=== PATIENT | female | born 1940 | race Caucasian/White ===

== ENCOUNTER → 2020-12-14 10:16 | Outpatient (BNVA) | payer MEDICARE, SELFPAY | PROVIDERS: Family Provider Family Medicine; PCP Family Medicine; Visit Provider Family Medicine | DX: R30.0 Dysuria (principal) | CPT/HCPCS: 81000; 87086 ==

== ENCOUNTER → 2020-12-31 15:12 | Outpatient (BNVA) | payer MEDICARE, SELFPAY | PROVIDERS: Family Provider Family Medicine; PCP Family Medicine; Visit Provider Nurse Practitioner Family | DX: R30.0 Dysuria (principal); R17 Unspecified jaundice; Z01.818 Encounter for other preprocedural examination | CPT/HCPCS: 80053; 81000; 85025; 87635 ==

== ENCOUNTER → 2022-08-12 13:20 | Outpatient (BNVA) | payer MEDICARE, SELFPAY | PROVIDERS: Family Provider Family Medicine; PCP Family Medicine; Visit Provider Nurse Practitioner Family | DX: R50.9 Fever, unspecified (principal); R05.9 Cough, unspecified; J32.9 Chronic sinusitis, unspecified | CPT/HCPCS: 87426 ==

== ENCOUNTER 2022-09-03 20:26 | Emergency (ER) | payer MEDICARE, SELFPAY ==
[2022-09-03] VITALS (9 sets, daily range): BP systolic 101–143; BP diastolic 59–86; PULSE 77–92; RESP 16–26; TEMP 36.4; O2SAT 88–100; BMI 23.1
--- NOTE | 2022-09-03 20:30 | XRR_ITS ---
PROCEDURE INFORMATION: Exam: XR Chest Exam date and time: 09/03/2022 9:20 PM Age: 81 years old Clinical indication: Cough and fever; Additional info: SOB TECHNIQUE: Imaging protocol: Radiologic exam of the chest. Views: 1 view. COMPARISON: CR XR chest 1V [id number] 11/18/2019 3:43 PM FINDINGS: Lungs: Interval mild patchy opacities in the right lower lobe which may represent inflammation or infection. Redemonstration of hyperinflation, interstitial fibrosis, calcified granulomas, and left basilar scarring. No consolidation. Pleural spaces: Unremarkable. No large pleural effusion. No pneumothorax. Heart/Mediastinum: Unremarkable. No cardiomegaly. Bones/joints: There are degenerative changes of the spine. XR/XR chest 1V portable [id number] IMPRESSION: 1. Interval development of mild patchy opacities in the right lower lobe which may represent inflammation or infection. 2. Otherwise, no significant change with underlying fibrosis and COPD.
--- NOTE | 2022-09-03 20:30 | ECG_ITS ---
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 Measurements Intervals [place] Rate: 79 P: 57 NV: 139 QRS: -40 QRSD: 86 T: 68 QT: 364 QTc: 418 Interpretive Statements SINUS RHYTHM WITH OCCASIONAL VENTRICULAR PREMATURE COMPLEXES POSSIBLE LEFT ATRIAL ENLARGEMENT [-0.1mV P-WAVE IN V1/V2] INFERIOR MYOCARDIAL INFARCTION , OF INDETERMINATE AGE Compared to ECG 11/18/2019 17:43:24 Ventricular premature complex(es) now present Sinus arrhythmia no longer present Left anterior fascicular block no longer present Myocardial infarct finding still present Electronically Signed On 09-04-2022 12:52:33 CDT by Monica Ruiz M.D. [id number]
[2022-09-03 21:55] LABS: Basophils % 0.2 %; Hematocrit 48.9 % (37.0-47.0); Hemoglobin 16.2 g/dL (11.5-15.3); Lymphocytes # 0.8 10^3/uL (0.8-4.8); Lymphocytes % 8.1 %; Mean Corpuscular HGB Conc 33.1 g/dL (30.0-36.0); Mean Corpuscular Hemoglobin 30.6 pg (28.0-34.0); Mean Corpuscular Volume 92.3 fl (81-99); Monocytes # 1.1 10^3/uL (0.2-0.9); Monocytes % 11.9 %; Neutrophils # 7.42 10^3/uL (1.8-7.7); Neutrophils % 79.5 %; Nucleated Red Blood Cells % 0 %; Platelet Count 171 10^3/cmm (130-400); White Blood Count 9.3 10^3/uL (4.0-10.0)
--- NOTE | 2022-09-03 21:59 | W.ED.GENADLT ---
HPI - General Adult General: Chief complaint: Shortness of Breath/Dyspnea Stated complaint: sob ,cough Time Seen by Provider: 09/03/22 21:31 History of Present Illness: Patient is an 81-year-old female with a history of COPD on 3 L of oxygen, hypertension who presents the emergency room for concerns of worsening cough. Patient was in contact with somebody with symptoms and cough last week. Patient has has had similar symptoms. Last week, patient was prescribed and antibiotics since despite taking the antibiotic, patient continues to have worsening cough and shortness of breath. Patient reports chills and decreased appetite in the last few days. Patient's daughter became concerned brought patient to the emergency room. On arrival, patient tells me that she still uses 3 L of oxygen. Patient is AAO x3 answering all my questions appropriately. Patient denies any chest pain, abdominal pain, diarrhea, melena/hematochezia. Patient denies any complaints. Onset:1 week ago Duration:1 week Location:home Severity:moderate Associated symptoms: Reports dyspnea; Deny chest pain, nausea, rash, palpitations or vomiting Review of Systems Const: Reports: chills and fatigue; Denies: fever(s) Eyes: Denies: change in vision ENMT: Denies: mouth pain Card: Denies: chest pain or palpitations Resp: Reports: dyspnea and non-productive cough GI: Denies: abdominal pain, nausea, vomiting or diarrhea : Denies: dysuria Musc: Denies: extremity pain Skin/Breast: Denies: rash or new lesions Neuro: Denies: weakness in extremities Psych: Reports: other (Normal mood) Remy/Lymph: Denies: easy bruising [facility] ED PFSH: Medical History (Updated 09/07/22 @ 06:23 by Elaina Escobedo MD) COPD (chronic obstructive pulmonary disease) with emphysema Hypertension Pneumonia Social History Smoking and tobacco status: former smoker Quit status (tobacco): has quit using tobacco Year quit tobacco: 2018 Alcohol intake: never Physical Exam Const: COMMON NORMALS: alert HENMT: COMMON NORMALS: atraumatic HEAD & SCALP: atraumatic MOUTH: moist mucous membranes not abnormal Eye: COMMON NORMALS: EOMs intact bilaterally and conjunctivae normal CONJUNCTIVA: Yes conjunctivae normal Neck/C-Spine: COMMON NORMALS: full ROM and supple Resp: COMMON NORMALS: normal respiratory effort OTHER: + Coarse breath sounds bilaterally Cardio: COMMON NORMALS: regular rate RATE: regular rate GI: COMMON NORMALS: Soft to palpation and non-tender PALPATION: Yes Soft to palpation OTHER: No focal TTP. NO guarding rebound, guarding, rigidity. No CVA tenderness to percussion. Neg Reis/Neg McBurney's point tenderness, no suprabupic tenderness to palpation. Extremity: COMMON NORMALS: full ROM Neuro: SENSORIUM/ORIENTATION: Yes alert MOTOR EXAM: No Abnormal motor strength present and Other motor observations present (no focal motor deficits) Psych: COMMON NORMALS: speech normal SPEECH: Yes normal speech MOOD & AFFECT: Yes euthymic mood Course Vital Signs: Vital signs: Vital Signs Temperature 97.6 F 09/03/22 20:41 Pulse Rate 83 09/03/22 23:47 Respiratory Rate 21 H 09/03/22 23:47 Blood Pressure 104/59 09/03/22 23:47 Pulse Oximetry 93 09/03/22 23:47 Oxygen Delivery Me thod 09/03/22 23:47 Oxygen Flow Rate 4 09/03/22 23:47 MDM - General Adult Medical Decision Making 81-year-old female with a history of COPD chronically on 3 L of oxygen, hypertension presenting to emergency room with dyspnea cough for the last week despite taking antibiotics. Patient does not remember what antibiotic she was on. Patient has noted have coarse breath sounds bilaterally. Patient satting at greater 95% on 3L. She has no signs of respiratory distress. Lab work-up showed white count 9.3. CRP is noted to be elevated over 100. Patient has sodium 131. X-ray chest showed right lower lobe opacity concerning for early pneumonia. At the present time, I performed a shared decision-making with patient and recommended admit admission given age and comorbidities. However patient's daughter reassures me that she will take care of her at home and give her medicine in the next few days. Patient received IV ceftriaxone and PO azithromycin in the ER. We will discharge patient with third-generation cephalosporin and azithromycin for pneumonia. Because patient chooses to go home, explained the risk of leaving the hospital today which includes worsening respiratory symptoms and sudden decompensation. Family verbalized understanding. I have given family strict return precaution for any signs of worsening dyspnea or cough, altered mental status, or any new or concerning complaints. Troponin x 2 with delta < 5. EKG is non-ischemic. Do not suspect ACS today. Rx cefdinir and azithromycin for PNA Disposition: Discharge. Patient counseled regarding diagnostic impression, treatment plan. Patient given ED strict return precautions to return for continuation, worsening, or development of new symptoms. Instructed to f/u w/ PCP regarding symptoms today. Patient verbalized understanding. Lab Data : 09/03/22 21:47 09/03/22 21:47 Radiology Impressions Chest X-Ray 09/03/22 20:30 IMPRESSION: 1. Interval development of mild patchy opacities in the right lower lobe which may represent inflammation or infection. 2. Otherwise, no significant change with underlying fibrosis and COPD. Laboratory Results WBC 9.3 10^3/uL (4.0-10.0) 09/03/22 21:47 RBC 5.30 10^6/uL (4.1-5.3) 09/03/22 21:47 Hgb 16.2 g/dL (11.5-15.3) H 09/03/22 21:47 Hct 48.9 % (37.0-47.0) H 09/03/22 21:47 MCV 92.3 fl (81-99) 09/03/22 21:47 MCH 30.6 pg (28.0-34.0) 09/03/22 21:47 MCHC 33.1 g/dL (30.0-36.0) 09/03/22 21:47 RDW 13.0 % (12.1-15.1) 09/03/22 21:47 Plt Count 171 10^3/cmm (130-400) 09/03/22 21:47 MPV 12.0 fL (7.4-10.4) H 09/03/22 21:47 Neut % (Auto) 79.5 % 09/03/22 21:47 Lymph % (Auto) 8.1 % 09/03/22 21:47 Reynolds % (Auto) 11.9 % 09/03/22 21:47 Eos % (Auto) 0.0 % 09/03/22 21:47 Baso % (Auto) 0.2 % 09/03/22 21:47 Neut # (Auto) 7.42 10^3/uL (1.8-7.7) 10/05/22 21:47 Lymph # (Auto) 0.8 10^3/uL (0.8-4.8) 09/03/22 21:47 Reynolds # (Auto) 1.1 10^3/uL (0.2-0.9) H 09/03/22 21:47 Eos # (Auto) 0.0 10^3/uL (0.0-0.8) 09/03/22 21:47 Baso # (Auto) 0.0 10^3/uL (0.0-0.1) 09/03/22 21:47 Nucleated RBC % (auto) 0 % 09/03/22 21:47 Nucleated RBCs # 0.0 /100WBC 09/03/22 21:47 Sodium 131 mmol/L (136-145) L 09/03/22 21:47 Potassium 4.3 mmol/L (3.5-5.1) 09/03/22 21:47 Chloride 89 mmol/L (98-107) L 09/03/22 21:47 Carbon Dioxide 29 mmol/L (22-29) 09/03/22 21:47 Anion Gap 17.3 (5-19) 09/03/22 21:47 BUN 31 mg/dL (8-23) H 09/03/22 21:47 Creatinine 1.0 mg/dL (0.5-0.9) H 09/03/22 21:47 GFR Calculation Not Reportable 09/03/22 21:47 Glucose 117 mg/dL (65-115) H 09/03/22 21:47 Calculated Osmolality 280 mOsm/kg (285-295) L 09/03/22 21:47 Calcium 9.4 mg/dL (8.5-10.5) 09/03/22 21:47 Troponin T Baseline 32 ng/L (0-10) H 09/03/22 21:47 Troponin T 120 Minute 30.27 ng/L (0-10) H 09/03/22 Unknown Delta Troponin T -1.73 ABS# (0-10) L 09/03/22 Unknown C-Reactive Protein 108.5 mg/L (0.0-4.9) H 09/03/22 21:47 Procalcitonin 0.11 ng/mL (0-0.5) 09/03/22 21:47 Imaging Data Other Imaging: Radiologist's impression: [facility] [address] [address] XRay Report Signed Patient: Ramya Medel Unit #: [id number] : 1940 Age/Sex: 81 / F ADM Date: 09/03/22 Loc: ER Room/Bed: Attending Dr: Ordering Provider/Ordering MD: Annalise Kang MD Date of Service: 09/03/22 Procedure(s): XR chest 1V portable [id number] Accession Number(s): [id number] Report Number: [id number] PROCEDURE INFORMATION: Exam: XR Chest Exam date and time: 09/03/2022 9:20 PM Age: 81 years old Clinical indication: Cough and fever; Additional info: SOB TECHNIQUE: Imaging protocol: Radiologic exam of the chest. Views: 1 view. COMPARISON: CR XR chest 1V [id number] 11/18/2019 3:43 PM FINDINGS: Lungs: Interval mild patchy opacities in the right lower lobe which may represent inflammation or infection. Redemonstration of hyperinflation, interstitial fibrosis, calcified granulomas, and left basilar scarring. No consolidation. Pleural spaces: Unremarkable. No large pleural effusion. No pneumothorax. Heart/Mediastinum: Unremarkable. No cardiomegaly. Bones/joints:? There are degenerative changes of the spine. XR/XR chest 1V portable [id number] IMPRESSION: 1. Interval development of mild patchy opacities in the right lower lobe which may represent inflammation or infection. 2. Otherwise, no significant change with underlying fibrosis and COPD. ? Dictated By: Martina Christian MD Signed By: Martina Christian MD Signed Date/Time: 09/03/222203 DD/ 19 Discharge Plan Discharge Patient Disposition: Home Clinical Impression: Dyspnea, Pneumonia, Cough Condition: Stable Prescriptions: New acetaminophen 500 mg tablet 500 mg PO Q6H PRN (Reason: pain) 5 Days Qty: 20 0RF cefdinir 300 mg capsule 300 mg PO BID 10 Days Qty: 20 0RF azithromycin [Zithromax TRI-LESLIE] 500 mg tablet See Rx Instructions .ROUTE .COMPLEX Qty: 3 0RF Rx Instructions: For 250 mg dose pack: take 500 mg today (day 1), then 250 mg for 4 days (days 2-5) No Action cyanocobalamin (vitamin B-12) [Vitamin B-12] 1,000 mcg tablet extended release 1,000 mcg PO DAILY cholecalciferol (vitamin D3) 125 mcg (5,000 unit) capsule 125 mcg PO DAILY (DME) portable oxygen concentrator. See Rx Instructions .Route .MEDSUPPLY Qty: 1 0RF Rx Instructions: As directed 2 L via NC 24 hours a day Adult Probiotic 3 billion cell capsule 3,000 mmu cells PO QDAY aspirin [Adult Low Dose Aspirin] 81 mg tablet,delayed release (DR/EC) 81 mg PO DAILY Lumigan 0.01 % drops 1 drop ophthalmic (eye) DAILY albuterol sulfate 2.5 mg /3 mL (0.083 %) solution for nebulization 2.5 mg INHALATION Q4H PRN (Reason: shortness of breath or wheezing) Qty: 75 3RF (DME) oxygen home fill system See Rx Instructions .Route .MEDSUPPLY Qty: 1 0RF Rx Instructions: O2 2 L via NC 24 hours a day lisinopril 10 mg tablet 10 mg PO DAILY Discharge Orders: Discharge ED (Routine); Ordered 09/03/22 Ordered By: Jose Sheffield Referrals: Dominguez Capps DO [Primary Care Provider] - Discharge Diet: Advance as tolerated Discharge Activity: Increase activity as tolerated Patient Instructions: Bacterial Pneumonia (ED) Activity Restrictions/Additional Instructions: Come back to the emergency room if your symptoms worsen, have any shortness of breath, change in behavior fever/chills, dehydration, inability tolerate food or drinks, any difficulty breathing, or any new or concerning complaints. Please return the emergency room if your pulse ox reads less than 88% on 3L of oxygen. Coding Level of Care Code ED Regulated Program Manager for Kyler Fwadin Exam Comprehensive
[2022-09-03] MEDS: ipratropium-albuterol 3 mL Neb INHALATION ×3 (22:02→22:03)
[2022-09-03 22:21] LABS: Troponin(5th) Baseline 32 ng/L (0-10)
[2022-09-03 22:22] LABS: Blood Urea Nitrogen 31 mg/dL (8-23); C Reactive Protein 108.5 mg/L (0.0-4.9); Calcium 9.4 mg/dL (8.5-10.5); Carbon Dioxide 29 mmol/L (22-29); Chloride 89 mmol/L (98-107); Glucose 117 mg/dL (65-115); Osmolality Calculated 280 mOsm/kg (285-295); Sodium 131 mmol/L (136-145)
[2022-09-03 22:27] LABS: Anion Gap 17.3 (5-19); Potassium 4.3 mmol/L (3.5-5.1)
[2022-09-03 22:29] LABS: Procalcitonin 0.11 ng/mL (0-0.5)
[2022-09-03] MEDS: cefTRIAXone 1,000 MG in sodium chloride 0.9% (plus) 50 ML 100 MG IV (22:51)
[2022-09-03] MEDS: azithromycin 250 mg Tablet 500 MG PO (22:52)
[2022-09-03 23:38] LABS: Troponin 5 2HR 30.27 ng/L (0-10)
[2022-09-03 23:45] LABS: Troponin 5 2HR Delta -1.73 ABS# (0-10)
== END 2022-09-04 00:02 | disposition home or self-care (01) ==
PROVIDERS: Emergency Provider Emergency Medicine; PCP Family Medicine
DX: J18.9 Pneumonia, unspecified organism (principal); J44.9 Chronic obstructive pulmonary disease, unspecified; Z99.81 Dependence on supplemental oxygen; I10 Essential (primary) hypertension; Z87.891 Personal history of nicotine dependence
CPT/HCPCS: 71045; 80048; 84145; 84484; 85025; 86140; 93005; 94640; 96365; 99285; J0696; Q0144

== ENCOUNTER 2022-09-06 20:58 | Inpatient (IN) | payer MEDICARE, SELFPAY ==
[2022-09-06] VITALS (8 sets, daily range): BP systolic 126–149; BP diastolic 57–86; PULSE 75–87; RESP 20–30; TEMP 36.4; O2SAT 92–96; BMI 22.6
--- NOTE | 2022-09-06 21:35 | PC.NURSE ---
assumed care of patient at 2129, RT notified of patient and pending orders at 2133.
--- NOTE | 2022-09-06 21:45 | XRR_ITS ---
PROCEDURE INFORMATION: Exam: XR Chest Exam date and time: 09/06/2022 9:53 PM Age: 81 years old Clinical indication: Shortness of breath; Additional info: SOB TECHNIQUE: Imaging protocol: Radiologic exam of the chest. Views: 1 view. COMPARISON: CR (CHEST, ) 09/03/2022 9:20 PM FINDINGS: Lungs: Changes of emphysema. Stable atelectasis or scarring in the lung bases. Mild scarring in the lung apices. Pleural spaces: Mild apical pleural scarring. No pneumothorax. No pleural effusion. Heart/Mediastinum: Unremarkable. No cardiomegaly. Bones/joints: Thoracolumbar scoliosis. XR/XR chest 1V portable [id number] IMPRESSION: 1. Stable chest. No definite evidence for active pneumonia.
[2022-09-06] MEDS: ipratropium-albuterol 3 mL Neb INHALATION (21:50)
--- NOTE | 2022-09-06 21:50 | PC.NURSE ---
patient unable to urinate, family states they are unsure of last time of void. Bladder scan results 167ml urine in bladder, dr bradley notified of findings.
[2022-09-06 21:57] LABS: Basophils % 0.5 %; Eosinophils % 0.5 %; Hematocrit 49.2 % (37.0-47.0); Hemoglobin 16.2 g/dL (11.5-15.3); Lymphocytes % 25.8 %; Mean Corpuscular HGB Conc 32.9 g/dL (30.0-36.0); Mean Corpuscular Hemoglobin 30.3 pg (28.0-34.0); Mean Platelet Volume 11.1 fL (7.4-10.4); Monocytes % 28.3 %; Neutrophils # 1.63 10^3/uL (1.8-7.7); Neutrophils % 44.4 %; Nucleated Red Blood Cells % 0 %; Platelet Count 248 10^3/cmm (130-400); Red Blood Count 5.35 10^6/uL (4.1-5.3); Red Cell Distribution Width 12.6 % (12.1-15.1); White Blood Count 3.7 10^3/uL (4.0-10.0)
--- NOTE | 2022-09-06 22:00 | PC.NURSE ---
respiratory at bedside for ABGs and updraft
[2022-09-06 22:07] LABS: D Dimer 1.29 ug/mIFEU (0-0.59)
[2022-09-06 22:21] LABS: Alanine Aminotransferase 17 U/L (0-33); Albumin Level 3.6 g/dL (3.5-5.2); Alkaline Phosphatase 87 U/L (35-105); Aspartate Amino Transferase 24 U/L (0-32); Blood Urea Nitrogen 18 mg/dL (8-23); Calcium 9.3 mg/dL (8.5-10.5); Carbon Dioxide 34 mmol/L (22-29); Chloride 92 mmol/L (98-107); Globulin 3.5 g/dL (1.3-4.6); Glucose 88 mg/dL (65-115); Magnesium 1.9 mg/dL (1.7-2.3); NT Pro B Type Natriuretic Pept 437 pg/mL (0-450); Osmolality Calculated 281 mOsm/kg (285-295); Sodium 135 mmol/L (136-145); Total Bilirubin 0.6 mg/dL (0.15-1.2); Total Protein 7.1 g/dL (6.6-8.7)
[2022-09-06 22:32] LABS: ABG PCO2 44.3 mmHg (35-45); ABG PH Result 7.46 (7.35-7.45); Arterial Blood Gas Hematocrit 48.9 % (37-47); Base Excess ABG 6.7 mmol/L (-2.0-2.0); Blood Gas Allen Test Pos; Blood Gas LPM 3.5 %; Blood Gas Sample Site Radial, left; Blood Gas Sample Type Arterial; Carboxyhemoglobin 0.9 %THgb (0.4-20.1); HCO3 ABG 31.5 mmol/L (22-26); HGB O2 Sat 92.2 % (95-100); Methemoglobin 0.6 % (0.4-1.5); Oxygen Device NC; PO2 ABG 62.4 mmHg (80.0-100.0); Total Hemoglobin 15.9 g/dL (12-16)
[2022-09-06] MEDS: sodium chloride 0.9% 1,000 ML 999 ML IV (22:37)
[2022-09-06 23:00] LABS: SARS Covid-2 Antigen positive (Negative)
[2022-09-06] MEDS: ondansetron 2 mg/ML SDV 2 mL 4 MG IVP (23:19)
--- NOTE | 2022-09-06 23:36 | PC.NURSE ---
family and patient refusing fentanyl, upset that it was ordered, stating she takes tramadol for her chronic pain and requesting this. patient states she would also rather take tramadol. dr bradley notified of this, awaiting orders. family also states that they believe she has an iodine allergy, refuse CTA, state they feel she had trouble breathing and bp decrease after injection previously at [facility] and just remembered. dr bradley notified.
--- NOTE | 2022-09-06 23:53 | PC.NURSE ---
entered room to administer tramadol as requesting for hip pain, family states i think she is gonna actually wait on pain meds we got that stuff [monitoring equipment] off and have a pillow under her hip and she's able to sleep. monitoring equipment placed back on patient, patient awakened with movement. family states well go ahead and ask her then . patient states yeah im just gonna wait i changed my mind im gonna lay like this . dr bradley notified, charge nurse dwayne notified, danny with pharmacy notified, mold making plastics sheets supervisor denny rodríguez notified due to several pulls and returns, discrepancies, and wastes of medications in pyxis to explain chain of events and transactions involving pyxis, MAR, and situation.
[2022-09-07] VITALS (13 sets, daily range): BP systolic 100–196; BP diastolic 43–115; PULSE 74–116; RESP 18–24; TEMP 36.6–36.8; O2SAT 93–98
--- NOTE | 2022-09-07 01:12 | PC.NURSE ---
report called to Shahida CONTRERAS, patient accepted to rm [id number] at this time.
--- NOTE | 2022-09-07 01:15 | W.ED.SOB ---
HPI - SOB/Dyspnea General: Chief Complaint: Shortness of Breath/Dyspnea Stated Complaint: Has Phenumonia Time Seen by Provider: 09/06/22 21:24 Source: patient and family History of Present Illness: HPI Narrative: 81-year-old female with a history of COPD. She is unvaccinated for COVID-19. She was evaluated 2 days ago and found to have a right lower lobe pneumonia. She was sent home on azithromycin and cefdinir, evidently after discussing being admitted. She was under strict instructions to return if she did not improve. Yesterday she seemed to do a bit better. Today she seemed worse again. She is lethargic. Dependent on oxygen all the time, which is new for her. She continues to have a cough with some clear sputum production and trouble breathing. MD elicited complaint: shortness of breath and cough Pertinent past history: COPD Onset (ago): day(s) Context: recent illness Timing: constant and progressively worsening Severity: moderate Exacerbating factors: lying flat and exertion Relieving factors: oxygen Known history of: COPD Associated symptoms: Reports chest congestion, cough and nausea; Deny abdominal pain, chest pain, dizziness, fever(s) or vomiting Treatment prior to arrival: oxygen and other (abx) Related Data: Home oxygen amount: other (2L intermittently) Review of Systems Const: Denies: fever(s) Card: Denies: chest pain Resp: Reports: dyspnea, productive cough and chest congestion GI: Reports: nausea; Denies: abdominal pain or vomiting Musc: Reports: back pain (upper back) Neuro: Denies: dizziness [facility] ED PFSH: Medical History (Updated 09/07/22 @ 06:23 by Elaina Escobedo MD) COPD (chronic obstructive pulmonary disease) with emphysema Hypertension Pneumonia Social History Smoking and tobacco status: former smoker Quit status (tobacco): has quit using tobacco Year quit tobacco: 2018 Alcohol intake: never Physical Exam Const: GENERAL APPEARANCE: cooperative, ill appearing and frail appearing HENMT: COMMON NORMALS: normocephalic, atraumatic and Normal external nose present HEAD & SCALP: normocephalic and atraumatic FACE & SINUS: normal facial exam and face symmetric NOSE: Normal external nose present Eye: COMMON NORMALS: Equal, round and reactive pupils present and EOMs intact bilaterally PUPIL: Yes Equal, round and reactive pupils present Neck/C-Spine: GENERAL: Yes trachea midline Chest: CHEST: Yes Symmetrical chest wall rise Resp: EFFORT & INSPECTION: Yes tachypneic and Yes uses accessory muscles AUSCULTATION: rhonchi and wheezes Cardio: COMMON NORMALS: regular rate and regular rhythm RATE: regular rate RHYTHM: regular rhythm GI: COMMON NORMALS: Normal to inspection, nondistended, normoactive bowel sounds present Extremity: COMMON NORMALS: no pedal edema Neuro: PAMELA COMA SCALE: document GCS findings [place] coma scale eye opening: Spontaneous Pamela coma scale verbal response: Orientated Pamela coma scale motor response: Obey commands [place] coma scale total score: 15 SENSORY EXAM: Yes extremities (intact) Psych: COMMON NORMALS: speech normal SPEECH: Yes normal speech Course Vital Signs: Vital signs: Vital Signs Temperature 98.2 F 09/07/22 15:56 Pulse Rate 96 09/07/22 15:56 Respiratory Rate 21 H 09/07/22 15:56 Blood Pressure 118/74 09/07/22 15:56 Pulse Oximetry 94 09/07/22 15:56 Oxygen Delivery Me thod 09/07/22 14:41 Oxygen Flow Rate 3 09/07/22 14:41 MDM - SOB/Dyspnea Medical Decision Making Mildly decreased white blood cell count of 3.7. Hemoglobin is 16. BUN and creatinine are normal. Sodium is 135. D-dimer is 1.29. She is COVID-19 positive by rapid testing. She is hypoxic requiring 4 L here to reach a sat of 94%. Her respiratory distress is improved with this. Nebulizer treatment may have helped some. She has been given Solu-Medrol. She is given levofloxacin after blood cultures. With increased hypoxia, COVID-pneumonia, she will be admitted. Family declined CTA due to history of possible anaphylactic reaction contrast. Lab Data : 09/06/22 21:52 09/07/22 05:14 Labs/Radiology: Radiology Impressions Chest X-Ray 09/06/22 21:45 IMPRESSION: 1. Stable chest. No definite evidence for active pneumonia. Venous Duplex 09/07/22 02:42 IMPRESSION: No evidence of deep vein thrombosis. Laboratory Results WBC 3.7 10^3/uL (4.0-10.0) L 09/06/22 21:52 RBC 5.35 10^6/uL (4.1-5.3) H 09/06/22 21:52 Hgb 16.2 g/dL (11.5-15.3) H 09/06/22 21:52 Hct 49.2 % (37.0-47.0) H 09/06/22 21:52 MCV 92.0 fl (81-99) 09/06/22 21:52 MCH 30.3 pg (28.0-34.0) 09/06/22 21:52 MCHC 32.9 g/dL (30.0-36.0) 09/06/22 21:52 RDW 12.6 % (12.1-15.1) 09/06/22 21:52 Plt Count 248 10^3/cmm (130-400) 09/06/22 21:52 MPV 11.1 fL (7.4-10.4) H 09/06/22 21:52 Neut % (Auto) 44.4 % 09/06/22 21:52 Lymph % (Auto) 25.8 % 09/06/22 21:52 [place] % (Auto) 28.3 % 09/06/22 21:52 Eos % (Auto) 0.5 % 09/06/22 21:52 Baso % (Auto) 0.5 % 09/06/22 21:52 Neut # (Auto) 1.63 10^3/uL (1.8-7.7) L 09/06/22 21:52 Lymph # (Auto) 1.0 10^3/uL (0.8-4.8) 09/06/22 21:52 [place] # (Auto) 1.0 10^3/uL (0.2-0.9) H 09/06/22 21:52 Eos # (Auto) 0.0 10^3/uL (0.0-0.8) 09/06/22 21:52 Baso # (Auto) 0.0 10^3/uL (0.0-0.1) 09/06/22 21:52 Nucleated RBC % (auto) 0 % 09/06/22 21:52 Nucleated RBCs # 0.0 /100WBC 09/06/22 21:52 D-Dimer 1.29 ug/mIFEU (0-0.59) H 09/06/22 21:52 Specimen Type Arterial 09/06/22 21:45 Sample Site Radial, left 09/06/22 21:45 ABG pH 7.46 (7.35-7.45) H 09/06/22 21:45 ABG pCO2 44.3 mmHg (35-45) 09/06/22 21:45 ABG pO2 62.4 mmHg (80.0-100.0) L 09/06/22 21:45 ABG HCO3 31.5 mmol/L (22-26) H 09/06/22 21:45 ABG Base Excess 6.7 mmol/L (-2.0-2.0) H 09/06/22 21:45 Daryn Test Pos 09/06/22 21:45 Hematocrit 48.9 % (37-47) H 09/06/22 21:45 Hgb O2 Saturation 92.2 % (95-100) L 09/06/22 21:45 Carboxyhemoglobin 0.9 %THgb (0.4-20.1) 09/06/22 21:45 Methemoglobin 0.6 % (0.4-1.5) 09/06/22 21:45 Total Hemoglobin 15.9 g/dL (12-16) 09/06/22 21:45 O2 Delivery Device Nc 09/06/22 21:45 O2 Liters/Min 3.5 % 09/06/22 21:45 Booster Operator ID [email or web address] 09/06/22 21:45 Sodium 135 mmol/L (136-145) L 09/06/22 21:52 Potassium 4.0 mmol/L (3.5-5.1) 09/06/22 21:52 Chloride 92 mmol/L (98-107) L 09/06/22 21:52 Carbon Dioxide 34 mmol/L (22-29) H 09/06/22 21:52 Anion Gap 13.0 (5-19) 09/06/22 21:52 BUN 18 mg/dL (8-23) 09/06/22 21:52 Creatinine 0.7 mg/dL (0.5-0.9) 09/06/22 21:52 GFR Calculation Not Reportable 09/06/22 21:52 Glucose 88 mg/dL (65-115) 09/06/22 21:52 Calculated Osmolality 281 mOsm/kg (285-295) L 09/06/22 21:52 Lactic Acid 1.0 mmol/L (0.5-2.2) 09/06/22 21:52 Calcium 9.3 mg/dL (8.5-10.5) 09/06/22 21:52 Magnesium 1.9 mg/dL (1.7-2.3) 09/06/22 21:52 Total Bilirubin 0.6 mg/dL (0.15-1.2) 09/06/22 21:52 AST 24 U/L (0-32) 09/06/22 21:52 ALT 17 U/L (0-33) 09/06/22 21:52 Alkaline Phosphatase 87 U/L (35-105) 09/06/22 21:52 NT-Pro-B Natriuret Pep 437 pg/mL (0-450) 09/06/22 21:52 Total Protein 7.1 g/dL (6.6-8.7) 09/06/22 21:52 Albumin 3.6 g/dL (3.5-5.2) 09/06/22 21:52 Globulin 3.5 g/dL (1.3-4.6) 09/06/22 21:52 SARS-CoV-2 Ag (Rapid) positive (Negative) 09/06/22 22:41 Discharge Plan Discharge Patient Disposition: Admitted As Inpatient Admit Provider: Elaina Escobedo Clinical Impression: Acute hypoxemic respiratory failure, Pneumonia due to 2019 novel coronavirus Condition: Stable Coding Level of Care Code ED Wellness Assistant for Chg Fwd Exam Comprehensive
--- NOTE | 2022-09-07 01:21 | PC.NURSE ---
patient family member notified of room assignment and care plan, states that her name is Haley Medel, daughter in law, she needs to be notified first of any and all changes, status changes, care plan changes, new medications or diagnostic orders before they are done to get her permission to do so, and to not administer any high power pain meds unless it is tramadol that she has already said was okay. No paperwork provided to this nurse for POA, but is primary caregiver with yulia medel. Shahida, primary nurse accepting patient for inpatient care, notified of Haley contact information and wishes, and that no documentation was provided for legal ability to override patient decisions and that patient is oriented to self time and situation at this time. Family leaving now due to facility policy for inpatient visiting hours, notified of visiting hours, states they will return in the AM.
[2022-09-07] MEDS: levofloxacin-dextrose 5 % 750 MG/150 ML PREMIX 100 MG IV (02:22)
--- NOTE | 2022-09-07 02:42 | USR_ITS ---
PROCEDURE INFORMATION: Exam: US Duplex Lower Extremity Veins, Bilateral Exam date and time: 09/07/2022 3:44 AM Age: 81 years old Clinical indication: Screening exam; Check for dvt; Additional info: Evaluate for dvt TECHNIQUE: Imaging protocol: Real-time Duplex ultrasound of the bilateral extremities with 2-D cline scale, color Doppler flow and spectral waveform analysis with image documentation. Complete exam focused on the bilateral lower extremity veins. COMPARISON: No relevant prior studies available. FINDINGS: Right deep veins: Unremarkable. The common femoral, femoral, proximal profunda femoral and popliteal veins are patent without thrombus. Normal Doppler waveforms. Normal compressibility and/or augmentation response. Right superficial veins: Saphenofemoral junction is patent without thrombus. Left deep veins: Unremarkable. The common femoral, femoral, proximal profunda femoral and popliteal veins are patent without thrombus. Normal Doppler waveforms. Normal compressibility and/or augmentation response. Left superficial veins: Saphenofemoral junction is patent without thrombus. Soft tissues: Unremarkable. US/CV venous duplex [facility] [id number] IMPRESSION: No evidence of deep vein thrombosis.
--- NOTE | 2022-09-07 02:46 | PM.HP ---
Providers/Chief Complaint Admitting Physician: Elaina Escobedo MD Primary Care Provider: Dominguez Capps DO Chief Complaint: Has Phenumonia History of Present Illness Ramya Medel is a 81 year old female with a past medical history of COPD, needs oxygen 3 L/min with exertion, hypertension, presented initially to emergency room on September 03, 2022 with complaints of cough, chills. Chest x-ray had showed a right lower lobe opacity concerning for pneumonia. She was discharged with cefdinir and azithromycin as patient preferred to return home on that day. She presented back to the emergency room today complaining of increased generalized weakness, lethargy, oxygen requirement up to 4 to 5 L/min and feeling short of breath. Rapid COVID tested and returned positive. Review of Systems General: Reports: 10 or more systems reviewed and unremarkable except in HPI and below Const: Denies: fever(s), chills or body aches Eyes: Denies: change in vision, blurry vision or photophobia ENMT: Reports: hoarseness; Denies: throat pain, enlarged tonsils, odynophagia or nasal congestion Card: Denies: chest pain, palpitations, irregular heart rhythm, edema, swelling of feet/ankles, lightheadedness, pre-syncope, dyspnea on exertion or orthopnea Resp: Denies: dyspnea, productive cough, non-productive cough, wheezing, stridor, pain on inspiration, change in phlegm color, hemoptysis or chest congestion GI: Denies: abdominal pain, nausea, vomiting, hematemesis, coffee ground emesis, dysphagia, heartburn, diarrhea, constipation, GI cramping, change in stool character, hematochezia or melena : Denies: flank pain, difficulty voiding, dysuria, urinary frequency, urinary urgency, urinary hesitancy or hematuria Musc: Denies: neck pain, back pain, extremity pain, joint swelling, joint warmth or deformity Neuro: Denies: headache(s), numbness in extremities, weakness in extremities, sensory changes, difficulty walking, frequent falls, dizziness, vertigo, behavioral changes, Slurred speech present or seizure-like activity Psych: Denies: anxiety, depression, suicidal ideation or homicidal ideation Endo: Denies: polyuria, polydipsia, tired all the time, cold intolerance or hot flashes Remy/Lymph: Denies: easy bruising or easy bleeding Medications/Allergies Home Medications Medication Instructions Recorded Confirmed Last Taken Type cyanocobalamin (vitamin B-12) 1,000 mcg PO DAILY 12/12/19 08/12/22 Unknown History 1,000 mcg tablet,extended release (Vitamin B-12 ER) lactobacillus combination no.8 3 3,000 mmu cells PO QDAY 12/19/19 08/12/22 Unknown History billion cell capsule (Adult Probiotic) albuterol sulfate 2.5 mg/3 mL 2.5 mg (3 mL) inhalation Q4H PRN 10/04/20 09/07/22 Unknown Rx (0.083 %) solution for nebulization shortness of breath or wheezing #75 mL aspirin 81 mg tablet,delayed 81 mg PO DAILY 10/04/20 09/07/22 Unknown History release (Adult Low Dose Aspirin) bimatoprost 0.01 % eye drops 1 drop ophthalmic (eye) DAILY 10/04/20 09/07/22 Unknown History (Lumigan) cholecalciferol (vitamin D3) 125 125 mcg PO DAILY 02/22/21 09/07/22 Unknown History mcg (5,000 unit) capsule portable oxygen concentrator. #1 ea 02/28/21 08/12/22 Unknown Rx oxygen home fill system #1 ea 03/07/21 08/12/22 Unknown Rx lisinopril 10 mg tablet 10 mg PO ONCE #90 tabs 03/05/22 08/12/22 Unknown Rx cefdinir 300 mg capsule 300 mg PO BID 10 days #20 caps 08/12/22 08/12/22 Unknown Rx acetaminophen 500 mg tablet 500 mg PO Q6H PRN pain 5 days #20 09/03/22 09/07/22 Unknown Rx tabs azithromycin 500 mg tablet See Rx Instructions PO .COMPLEX #3 09/03/22 09/07/22 09/06/22 09:00 Rx (Zithromax TRI-LESLIE) tabs cefdinir 300 mg capsule 300 mg PO BID pneumonia 10 days 09/03/22 09/07/22 09/06/22 09:00 Rx #20 caps Allergies Allergy/AdvReac Type Severity Reaction Status Date / Time prednisone Allergy Intermediate nausea Verified 08/12/22 12:59 Penicillins Allergy Unknown unknown Verified 08/12/22 12:59 iodine Allergy ALGY-Anaphy Verified 09/06/22 23:39 laxis morphine AdvReac Mild itching Verified 08/12/22 12:59 PFSH Acute PFSH: Medical History (Updated 09/07/22 @ 06:23 by Elaina Escobedo MD) COPD (chronic obstructive pulmonary disease) with emphysema Hypertension Pneumonia Social History Smoking and tobacco status: former smoker Quit status (tobacco): has quit using tobacco Year quit tobacco: 2018 Alcohol intake: never Vitals/I&O/Wt Last Vital Signs Temp 98.0 F 09/07/22 01:52 Pulse 78 09/07/22 01:52 Resp 22 H 09/07/22 01:52 BP 155/80 09/07/22 01:52 Pulse Ox 94 09/07/22 01:52 O2 Del Method 09/07/22 01:52 O2 Flow Rate 4 09/07/22 01:52 09/06/22 09/06/22 09/07/22 14:59 22:59 06:59 Intake Total 1000 / 1000 Output Total 400 / 400 Balance 600 / 600 Weight last 48 hrs Weight 59.874 kg Physical Exam Narrative: General: Elderly frail-appearing woman lying in bed, no acute distress at this time. HEENT: PERRLA, pupils bilaterally equal and reactive, pallors not present Chest: Wheezing to auscultation bilaterally CVS: S1-S2 regular, no murmurs, no tachycardia, no gallops, no rubs Abdomen: Soft, nontender, no organomegaly, bowel sounds present Neuro: No focal motor deficits Data : 09/06/22 21:52 09/07/22 05:14 Other Labs: Radiology Impressions Chest X-Ray 09/06/22 21:45 IMPRESSION: 1. Stable chest. No definite evidence for active pneumonia. Venous Duplex 09/07/22 02:42 IMPRESSION: No evidence of deep vein thrombosis. Laboratory Results WBC 3.7 10^3/uL (4.0-10.0) L 09/06/22 21:52 RBC 5.35 10^6/uL (4.1-5.3) H 09/06/22 21:52 Hgb 16.2 g/dL (11.5-15.3) H 09/06/22 21:52 Hct 49.2 % (37.0-47.0) H 09/06/22 21:52 MCV 92.0 fl (81-99) 09/06/22 21:52 MCH 30.3 pg (28.0-34.0) 09/06/22 21:52 MCHC 32.9 g/dL (30.0-36.0) 09/06/22 21:52 RDW 12.6 % (12.1-15.1) 09/06/22 21:52 Plt Count 248 10^3/cmm (130-400) 09/06/22 21:52 MPV 11.1 fL (7.4-10.4) H 09/06/22 21:52 Neut % (Auto) 44.4 % 09/06/22 21:52 Lymph % (Auto) 25.8 % 09/06/22 21:52 Bracken % (Auto) 28.3 % 09/06/22 21:52 Eos % (Auto) 0.5 % 09/06/22 21:52 Baso % (Auto) 0.5 % 09/06/22 21:52 Neut # (Auto) 1.63 10^3/uL (1.8-7.7) L 09/06/22 21:52 Lymph # (Auto) 1.0 10^3/uL (0.8-4.8) 09/06/22 21:52 Bracken # (Auto) 1.0 10^3/uL (0.2-0.9) H 09/06/22 21:52 Eos # (Auto) 0.0 10^3/uL (0.0-0.8) 09/06/22 21:52 Baso # (Auto) 0.0 10^3/uL (0.0-0.1) 09/06/22 21:52 Nucleated RBC % (auto) 0 % 09/06/22 21:52 Nucleated RBCs # 0.0 /100WBC 09/06/22 21:52 D-Dimer 1.00 ug/mIFEU (0-0.59) H 09/07/22 05:14 Specimen Type Arterial 09/06/22 21:45 Sample Site Radial, left 09/06/22 21:45 ABG pH 7.46 (7.35-7.45) H 09/06/22 21:45 ABG pCO2 44.3 mmHg (35-45) 09/06/22 21:45 ABG pO2 62.4 mmHg (80.0-100.0) L 09/06/22 21:45 ABG HCO3 31.5 mmol/L (22-26) H 09/06/22 21:45 ABG Base Excess 6.7 mmol/L (-2.0-2.0) H 09/06/22 21:45 Daryn Test Pos 09/06/22 21:45 Hematocrit 48.9 % (37-47) H 09/06/22 21:45 Hgb O2 Saturation 92.2 % (95-100) L 09/06/22 21:45 Carboxyhemoglobin 0.9 %THgb (0.4-20.1) 09/06/22 21:45 Methemoglobin 0.6 % (0.4-1.5) 09/06/22 21:45 Total Hemoglobin 15.9 g/dL (12-16) 09/06/22 21:45 O2 Delivery Device Nc 09/06/22 21:45 O2 Liters/Min 3.5 % 09/06/22 21:45 Maintenance And Custodian Supervisor ID [email or web address] 09/06/22 21:45 Sodium 138 mmol/L (136-145) 09/07/22 05:14 Potassium 4.5 mmol/L (3.5-5.1) 09/07/22 05:14 Chloride 98 mmol/L (98-107) 09/07/22 05:14 Carbon Dioxide 29 mmol/L (22-29) 09/07/22 05:14 Anion Gap 15.5 (5-19) 09/07/22 05:14 BUN 15 mg/dL (8-23) 09/07/22 05:14 Creatinine 0.6 mg/dL (0.5-0.9) 09/07/22 05:14 GFR Calculation Not Reportable 09/07/22 05:14 Glucose 176 mg/dL (65-115) H 09/07/22 05:14 Calculated Osmolality 291 mOsm/kg (285-295) 09/07/22 05:14 Lactic Acid 1.0 mmol/L (0.5-2.2) 09/06/22 21:52 Calcium 8.4 mg/dL (8.5-10.5) L 09/07/22 05:14 Magnesium 1.9 mg/dL (1.7-2.3) 09/06/22 21:52 Total Bilirubin 0.3 mg/dL (0.15-1.2) 09/07/22 05:14 AST 19 U/L (0-32) 09/07/22 05:14 ALT 15 U/L (0-33) 09/07/22 05:14 Alkaline Phosphatase 74 U/L (35-105) 09/07/22 05:14 C-Reactive Protein 36.7 mg/L (0.0-4.9) H 09/07/22 05:14 NT-Pro-B Natriuret Pep 437 pg/mL (0-450) 09/06/22 21:52 Total Protein 5.8 g/dL (6.6-8.7) L 09/07/22 05:14 Albumin 2.7 g/dL (3.5-5.2) L 09/07/22 05:14 Globulin 3.1 g/dL (1.3-4.6) 09/07/22 05:14 Procalcitonin 0.06 ng/mL (0-0.5) 09/07/22 05:14 SARS-CoV-2 Ag (Rapid) positive (Negative) 09/06/22 22:41 Micro: Microbiology 09/06/22 23:12 Blood Culture - Preliminary Blood SPECIMEN COLLECTED 09/06/22 23:05 Blood Culture - Preliminary Blood SPECIMEN COLLECTED A&P Assessment and plan (1) Pneumonia due to 2019 novel coronavirus: (2) COPD (chronic obstructive pulmonary disease) with chronic bronchitis: (3) Acute and chronic respiratory failure with hypoxia: Plan Admit to [facility]. 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 Remdisivir 200mg iv x 1 followed by 100mg iv daily dexamethasone 6mg IVP daily duoneb q6h, budesonide q12h scheduled nebulization empiric levofloxacin Flutter valve/spirometer at bedside trend inflammatory markers including CRP, D dimer CTA PE to evalaute for PE given elevated D dimer, however reported anaphylactic allergy to contrast. We will obtain lower extremity duplex, VQ scan on Thursday. In the interim using Lovenox 1 mg/kg every 12 hours. Attestations Medical Necessity Statement*: Anticipate greater than 2 midnight admission for management of COVID-19, COPD exacerbation, acute on chronic hypoxic respiratory failure Coding Level of Care Code Acute Broadcast Engineer for [facility] Fwd Diagnoses Pneumonia due to 2019 novel coronavirus U07.1; J12.82 COPD (chronic obstructive pulmonary disease) with chronic bronchitis J44.9 Acute and chronic respiratory failure with hypoxia J96.21
[2022-09-07] MEDS: dexamethasone 4 mg/mL INJ 6 MG IVP (04:00)
[2022-09-07] MEDS: ondansetron 2 mg/ML SDV 2 mL 4 MG IVP (04:11)
[2022-09-07] MEDS: remdesivir 200 MG in sodium chloride 0.9% (100 ml) 100 ML 100 MG IV (04:14)
[2022-09-07] MEDS: benzonatate 100 mg Capsule PO (05:10)
[2022-09-07 06:07] LABS: Alanine Aminotransferase 15 U/L (0-33); Albumin Level 2.7 g/dL (3.5-5.2); Alkaline Phosphatase 74 U/L (35-105); Anion Gap 15.5 (5-19); Aspartate Amino Transferase 19 U/L (0-32); Blood Urea Nitrogen 15 mg/dL (8-23); C Reactive Protein 36.7 mg/L (0.0-4.9); Calcium 8.4 mg/dL (8.5-10.5); Carbon Dioxide 29 mmol/L (22-29); Chloride 98 mmol/L (98-107); Globulin 3.1 g/dL (1.3-4.6); Glucose 176 mg/dL (65-115); Osmolality Calculated 291 mOsm/kg (285-295); Potassium 4.5 mmol/L (3.5-5.1); Sodium 138 mmol/L (136-145); Total Bilirubin 0.3 mg/dL (0.15-1.2); Total Protein 5.8 g/dL (6.6-8.7)
[2022-09-07 06:14] LABS: Procalcitonin 0.06 ng/mL (0-0.5)
[2022-09-07] MEDS: enoxaparin 60 mg/0.6 mL Syringe 50 MG SUBCUT ×2 (06:41→17:43)
[2022-09-07] MEDS: aspirin 81 mg EC Tablet PO (08:43)
[2022-09-07] MEDS: levoFLOXacin 750 mg Tablet PO (08:43)
[2022-09-07] MEDS: pantoprazole DR 40 mg Tablet PO (08:43)
--- NOTE | 2022-09-07 08:53 | ECG_ITS ---
[facility] Test Date: 2022-09-07 Pat Name: Ramya Medel Department: Room: 258 Gender: Female Opthalmic Tech: : 1940 Requested By: Juve Inman Order Number: [id number] Wilmer MD: Kiana Muhammad M.D. Measurements Intervals [place] Rate: 77 P: 59 PA: 151 QRS: -36 QRSD: 74 T: 53 QT: 373 QTc: 425 Interpretive Statements SINUS RHYTHM POSSIBLE LEFT ATRIAL ENLARGEMENT [-0.1mV P-WAVE IN V1/V2] LOW QRS VOLTAGE IN EXTREMITY LEADS [QRS DEFLECTION < 0.5 mV IN LIMB LEADS] PATTERN CONSISTENT WITH PULMONARY DISEASE INFERIOR MYOCARDIAL INFARCTION , OF INDETERMINATE AGE [40+ ms Q WAVE AND/OR ST/T ABNORMALITY IN II/aVF] Compared to ECG 09/03/2022 21:31:42 Low QRS voltage now present Ventricular premature complex(es) no longer present Myocardial infarct finding still present Electronically Signed On 09-08-2022 21:28:34 CDT by Kiana Muhammad M.D. [id number]
[2022-09-07] MEDS: ipratropium-albuterol 3 mL Neb INHALATION ×3 (08:55→19:59)
[2022-09-07] MEDS: lisinopril 10 mg Tablet PO (09:34)
[2022-09-07] MEDS: budesonide 0.5 mg/2 mL Neb INHALATION ×2 (12:47→19:59)
--- NOTE | 2022-09-07 15:12 | PM.PN ---
Subjective Subjective: Patient was seen this morning, she tells me she feels a lot better, she does have a history of COPD, has not smoked in the last 5 years Vitals/I&O/Wt Last Vital Signs Temp 98.3 F 09/07/22 12:00 Pulse 78 09/07/22 14:41 Resp 18 09/07/22 14:41 BP 126/86 09/07/22 12:00 Pulse Ox 93 09/07/22 14:41 O2 Del Method 09/07/22 14:41 O2 Flow Rate 3 09/07/22 14:41 09/07/22 09/07/22 09/07/22 06:59 14:59 22:59 Intake Total 1250 / 1250 150 / 150 Output Total 800 / 800 250 / 250 Balance 450 / 450 -100 / -100 Weight last 48 hrs Weight 59.874 kg Physical Exam Const: COMMON NORMALS: no acute distress and patient oriented x3 Resp: COMMON NORMALS: normal respiratory effort, No retractions and No use of accessory muscles AUSCULTATION: wheezes Cardio: COMMON NORMALS: regular rate, regular rhythm, S1 normal heart sound present and S2 normal heart sound present RATE: regular rate RHYTHM: regular rhythm HEART SOUNDS: S1 normal heart sound present and S2 normal heart sound present GI: COMMON NORMALS: Normal to inspection, nondistended, normoactive bowel sounds present, non-tender and no masses Extremity: COMMON NORMALS: no pedal edema Neuro: COMMON NORMALS: patient oriented x3 Psych: COMMON NORMALS: mental status grossly normal Data : 09/06/22 21:52 09/07/22 05:14 Micro: Microbiology 09/06/22 23:12 Blood Culture - Preliminary Blood SPECIMEN COLLECTED 09/06/22 23:05 Blood Culture - Preliminary Blood SPECIMEN COLLECTED A&P Assessment and plan (1) Pneumonia due to 2019 novel coronavirus: (2) COPD (chronic obstructive pulmonary disease) with chronic bronchitis: (3) Acute and chronic respiratory failure with hypoxia: Plan Admit to [facility]. 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 Remdisivir 200mg iv x 1 followed by 100mg iv daily dexamethasone 6mg IVP daily duoneb q6h, budesonide q12h scheduled nebulization empiric levofloxacin Flutter valve/spirometer at bedside trend inflammatory markers including CRP, D dimer CTA PE to evalaute for PE given elevated D dimer, however reported anaphylactic allergy to contrast. Venous ultrasound negative for DVT, VQ scan on Thursday. In the interim using Lovenox 1 mg/kg every 12 hours, 50 mg every 12 hours Attestations Medical Necessity Statement*: Patient requires hospitalization, inpatient, greater than 2 midnights for COVID-19 Coding Level of Care Code Acute Marketing Intelligence Analyst for [facility] Fwd Diagnoses Pneumonia due to 2019 novel coronavirus U07.1; J12.82 COPD (chronic obstructive pulmonary disease) with chronic bronchitis J44.9 Acute and chronic respiratory failure with hypoxia J96.21
--- NOTE | 2022-09-07 18:47 | PC.NURSE ---
Report given to hSahida CONTRERAS at this time
[2022-09-07] MEDS: TRAMadol 50 mg Tablet PO (20:38)
[2022-09-08] VITALS (12 sets, daily range): BP systolic 129–157; BP diastolic 75–90; PULSE 50–93; RESP 16–18; TEMP 36.3–37.1; O2SAT 91–99
[2022-09-08] MEDS: dexamethasone 4 mg/mL INJ 6 MG IVP (02:09)
[2022-09-08] MEDS: ondansetron 2 mg/ML SDV 2 mL 4 MG IVP ×2 (02:20→10:15)
[2022-09-08] MEDS: ipratropium-albuterol 3 mL Neb INHALATION ×3 (02:29→19:40)
[2022-09-08] MEDS: remdesivir 100 MG in sodium chloride 0.9% (100 ml) 100 ML IV (05:27)
[2022-09-08 05:38] LABS: Hematocrit 44.2 % (37.0-47.0); Hemoglobin 14.4 g/dL (11.5-15.3); Lymphocytes # 0.6 10^3/uL (0.8-4.8); Lymphocytes % 11.4 %; Mean Corpuscular HGB Conc 32.6 g/dL (30.0-36.0); Mean Corpuscular Hemoglobin 30.2 pg (28.0-34.0); Mean Corpuscular Volume 92.7 fl (81-99); Mean Platelet Volume 10.8 fL (7.4-10.4); Monocytes # 0.9 10^3/uL (0.2-0.9); Monocytes % 17.6 %; Neutrophils # 3.41 10^3/uL (1.8-7.7); Neutrophils % 69.6 %; Nucleated Red Blood Cells % 0 %; Platelet Count 269 10^3/cmm (130-400); Red Blood Count 4.77 10^6/uL (4.1-5.3); Red Cell Distribution Width 12.7 % (12.1-15.1); White Blood Count 4.9 10^3/uL (4.0-10.0)
[2022-09-08 05:57] LABS: Blood Urea Nitrogen 17 mg/dL (8-23); C Reactive Protein 18.2 mg/L (0.0-4.9); Calcium 9.4 mg/dL (8.5-10.5); Carbon Dioxide 29 mmol/L (22-29); Chloride 98 mmol/L (98-107); Glucose 125 mg/dL (65-115); Osmolality Calculated 287 mOsm/kg (285-295); Sodium 137 mmol/L (136-145)
[2022-09-08 06:02] LABS: Procalcitonin 0.05 ng/mL (0-0.5)
[2022-09-08 06:07] LABS: Anion Gap 14.4 (5-19); Potassium 4.4 mmol/L (3.5-5.1)
[2022-09-08] MEDS: enoxaparin 60 mg/0.6 mL Syringe 50 MG SUBCUT ×2 (06:24→17:19)
--- NOTE | 2022-09-08 06:27 | NM_ITS ---
WS: [id number] NUCLEAR MEDICINE LUNG VENTILATION AND PERFUSION CLINICAL INFORMATION: covid, possible PE TECHNIQUE: Ventilation/perfusion lung scan with 32.0 mCi technetium 99m DTPA. 5.0 mCi MAA COMPARISON: Radiograph September 06, 2022 FINDINGS: Hyperinflation. Advanced chronic emphysematous changes. Heterogeneous radiotracer deposition on the p erfusion images. Patchy radiotracer deposition on the ventilatory images consistent with emphysematou s change. Several matched ventilation/perfusion defects. No mismatched ventilation/perfusion defects. No lobar defects. Low probability for pulmonary embolus. NM/NM pul vent and perfus* [id number] IMPRESSION: 1. Low probability for pulmonary embolus.
[2022-09-08] MEDS: aspirin 81 mg EC Tablet PO (10:05)
[2022-09-08] MEDS: pantoprazole DR 40 mg Tablet PO (10:05)
[2022-09-08] MEDS: levoFLOXacin 750 mg Tablet PO (10:05)
--- NOTE | 2022-09-08 13:41 | PC.CHAP ---
Pastoral Care Encounter/Spiritual Assessment Type of Contact [] Declined research agricultural engineer visit [] Patient/Family/Request visit [] Outpatient visit [] Follow-up visit [] Physician referral [] Code/Alert [x] Routine visit [] Staff referral [] Actively dying [] Patient sleeping [] Family support [] [] Out of room [] Palliative care [] [] Receiving care in room [] Pre-surgical visit [] Trauma [] Long length of stay [] ICU visit [] Other: Relational/Emotional Strength [] Patient feels connected with others/family/visitors/staff [] Distress [] Loneliness/isolation [] Abandonment Spirituality of Patient [] Person of [place] [] Attends Episcopalian of their [place] [] Believes in Prayer [] Reads Bible or Amish materials [] There are Spiritual issues to be addressed Data Support Specialist Interventions [x] Prayer [] Active listening [] Non-anxious presence [] Spiritual/emotional support [] Crisis/trauma care [] Spiritual counseling [] Bereavement support [] Provided bereavement packet [] Provided Bible/devotional materials [] Provided toy/stuffed animal, coloring book to patient or family member [] Provided Communion [] Anointing/[place] [] Salvation [x] Completed spiritual assessment [] Other: Impact on Illness or Injury [] Angry [] Fearful [] Anxious [] Often cries [] Exhaustion [] Unable to work [] Unable to attend amish [] Unable to walk/stand [] Unable to read [] Unable to drive [] Unable to eat/drink [] Unable to sleep [] Unable to be with family [] Patient intubated [] Other: Summary Time spent with patient
--- NOTE | 2022-09-08 14:26 | P.PN_ITS ---
Subjective Subjective: Seen this morning. Patient is on 2.5 L nasal cannula. [id number] present at bedside. Patient has a very dry nose and did have a nosebleed. [id number] asking if we can use a humidifier for home as well. Patient states she definitely feels better compared to admission however still feels sick. She did have some nausea this morning for which Zofran was given. No diarrhea however. Vitals/I&O/Wt Last Vital Signs Temp 97.8 F 09/08/22 12:00 Pulse 69 09/08/22 12:00 Resp 16 09/08/22 12:00 BP 150/90 09/08/22 12:00 Pulse Ox 94 09/08/22 12:00 O2 Del Method 09/08/22 12:00 O2 Flow Rate 3 09/08/22 08:00 09/07/22 09/08/22 09/08/22 22:59 06:59 14:59 Intake Total 120 / 270 100 / 370 240 / 240 Output Total 250 / 500 Balance 120 / 20 -150 / -130 240 / 240 Weight last 48 hrs Weight 59.874 kg Physical Exam Narrative: General: Alert oriented x3, patient seen sitting up in bed on 2.5 L nasal cannula. HEENT: Normocephalic, atraumatic, EOMI, breathing normally and comfortably. [id number] present at bedside. Cardio: Regular rate rhythm, normal S1-S2, Respiratory: Fair bilateral air entry, Rales at left base, rest clear to auscultation with no wheezes or rhonchi present. GI: Abdomen soft, nontender, nondistended, bowel sounds + Extremities: no edema, no cyanosis Data : 09/08/22 04:40 09/08/22 04:40 Micro: Microbiology 09/06/22 23:12 Blood Culture - Preliminary Blood NEGATIVE TO DATE 09/06/22 23:05 Blood Culture - Preliminary Blood NEGATIVE TO DATE A&P Assessment and plan (1) Pneumonia due to 2019 novel coronavirus: (2) COPD (chronic obstructive pulmonary disease) with chronic bronchitis: (3) Acute and chronic respiratory failure with hypoxia: Plan 81-year-old lady with known COPD, home oxygen dependence, currently presenting with worsening hypoxia, wheezing on auscultation bilaterally, 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 Remdisivir 200mg iv x 1 followed by 100mg iv daily. Will complete 5-day course unless she improves and discharges sooner.. dexamethasone 6mg IVP daily x10 days total duoneb q6h, budesonide q12h scheduled nebulization empiric levofloxacin Flutter valve/spirometer at bedside CRP elevated, D-dimer elevated. VQ scan negative for PE. Patient refused CTA at admission. Venous Doppler negative for DVT. We will switch to DVT p rophylaxis dose at this time. Zofran for nausea. Alternate with Reglan as needed. ? Allow for clear liquids and advance as tolerated. Attestations 2 Medical Necessity Statement*: Patient requires hospitalization, inpatient, greater than 2 midnights for COVID-19 Coding Level of Care Code Acute Airport Duty Manager for [facility] Diagnoses Pneumonia due to 2019 novel coronavirus U07.1; J12.82 COPD (chronic obstructive pulmonary disease) with chronic bronchitis J44.9 Acute and chronic respiratory failure with hypoxia J96.21
[2022-09-08] MEDS: metoclopramide 5 mg/mL SDV 2 mL 10 MG IVP (16:30)
[2022-09-08] MEDS: TRAMadol 50 mg Tablet PO (17:19)
[2022-09-08] MEDS: budesonide 0.5 mg/2 mL Neb INHALATION (19:40)
[2022-09-09] VITALS (13 sets, daily range): BP systolic 130–150; BP diastolic 80–95; PULSE 50–90; RESP 16–18; TEMP 36.6–36.7; O2SAT 95–100
[2022-09-09] MEDS: ipratropium-albuterol 3 mL Neb INHALATION ×4 (02:19→21:18)
[2022-09-09] MEDS: dexamethasone 4 mg/mL INJ 6 MG IVP (03:43)
[2022-09-09 05:39] LABS: C Reactive Protein 10.6 mg/L (0.0-4.9)
[2022-09-09] MEDS: enoxaparin 60 mg/0.6 mL Syringe 50 MG SUBCUT (06:03)
[2022-09-09] MEDS: remdesivir 100 MG in sodium chloride 0.9% (100 ml) 100 ML IV (06:04)
[2022-09-09 06:09] LABS: Anion Gap 12.5 (5-19); Blood Urea Nitrogen 18 mg/dL (8-23); Calcium 9.5 mg/dL (8.5-10.5); Carbon Dioxide 32 mmol/L (22-29); Chloride 95 mmol/L (98-107); Glucose 114 mg/dL (65-115); Osmolality Calculated 285 mOsm/kg (285-295); Potassium 3.5 mmol/L (3.5-5.1); Sodium 136 mmol/L (136-145)
[2022-09-09 06:17] LABS: Procalcitonin 0.05 ng/mL (0-0.5)
[2022-09-09] MEDS: budesonide 0.5 mg/2 mL Neb INHALATION ×2 (08:52→21:18)
[2022-09-09] MEDS: levoFLOXacin 750 mg Tablet PO (09:51)
[2022-09-09] MEDS: pantoprazole DR 40 mg Tablet PO (09:51)
[2022-09-09] MEDS: aspirin 81 mg EC Tablet PO (09:51)
[2022-09-09] MEDS: TRAMadol 50 mg Tablet PO (11:18)
--- NOTE | 2022-09-09 14:34 | P.PN_ITS ---
Subjective Subjective: no acute events overnight pt feels better has some back pain with laying in bed ordered lidocaine patch as per her request she will work with PT today Vitals/I&O/Wt Last Vital Signs Temp 98.1 F 09/09/22 12:00 Pulse 72 09/09/22 12:00 Resp 16 09/09/22 12:00 BP 130/88 09/09/22 12:00 Pulse Ox 99 09/09/22 12:00 O2 Del Method 09/09/22 12:00 O2 Flow Rate 3 09/09/22 12:00 09/08/22 09/09/22 09/09/22 22:59 06:59 14:59 Intake Total 240 / 720 220 / 220 Output Total 350 / 350 300 / 650 700 / 700 Balance -110 / 370 -300 / 70 -480 / -480 Physical Exam Narrative: General: Alert oriented x3, patient seen sitting up in bed on 3 L nasal cannula. HEENT: Normocephalic, atraumatic, EOMI, breathing normally and comfortably. [id number] present at bedside. Cardio: Regular rate rhythm, normal S1-S2, Respiratory: Fair bilateral air entry, ronchi at bses b/l, rest clear to auscultation with no wheezes or rhonchi present. GI: Abdomen soft, nontender, nondistended, bowel sounds + Extremities: no edema, no cyanosis Data : 09/08/22 04:40 09/09/22 04:54 A&P Assessment and plan (1) Pneumonia due to 2019 novel coronavirus: (2) COPD (chronic obstructive pulmonary disease) with chronic bronchitis: (3) Acute and chronic respiratory failure with hypoxia: Plan 81-year-old lady with known COPD, home oxygen dependence, currently presenting with worsening hypoxia, wheezing on auscultation bilaterally, likely account services 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 Remdisivir 200mg iv x 1 followed by 100mg iv daily. Will complete 5-day course unless she improves and discharges sooner.. dexamethasone 6mg IVP daily x10 days total duoneb q6h, budesonide q12h scheduled nebulization empiric levofloxacin Flutter valve/spirometer at bedside CRP elevated, D-dimer elevated. VQ scan negative for PE. Patient refused CTA at admission. Venous Doppler negative for DVT. We will switch to DVT prophylaxis dose at this time. Zofran for nausea. Alternate with Reglan as needed. PT/OT today Plan for dc in AM. Attestations Medical Necessity Statement*: Patient requires hospitalization, inpatient, greater than 2 midnights for COVID-19 Coding Level of Care Code Acute Floor Person for [facility] Fwd Diagnoses Pneumonia due to 2019 novel coronavirus U07.1; J12.82 COPD (chronic obstructive pulmonary disease) with chronic bronchitis J44.9 Acute and chronic respiratory failure with hypoxia J96.21
[2022-09-09] MEDS: lidocaine 5% Patch 1 PATCH TOPICAL (14:50)
[2022-09-10] VITALS (8 sets, daily range): BP systolic 148–168; BP diastolic 78–83; PULSE 50–92; RESP 16–18; TEMP 36.7–36.8; O2SAT 94–98
[2022-09-10] MEDS: ipratropium-albuterol 3 mL Neb INHALATION ×2 (02:37→08:50)
[2022-09-10] MEDS: dexamethasone 4 mg/mL INJ 6 MG IVP (02:55)
[2022-09-10 05:37] LABS: Anion Gap 14.7 (5-19); Blood Urea Nitrogen 14 mg/dL (8-23); C Reactive Protein 7.5 mg/L (0.0-4.9); Calcium 9.3 mg/dL (8.5-10.5); Carbon Dioxide 30 mmol/L (22-29); Chloride 97 mmol/L (98-107); Glucose 101 mg/dL (65-115); Osmolality Calculated 287 mOsm/kg (285-295); Potassium 3.7 mmol/L (3.5-5.1); Sodium 138 mmol/L (136-145)
[2022-09-10 05:40] LABS: Procalcitonin 0.02 ng/mL (0-0.5)
[2022-09-10] MEDS: remdesivir 100 MG in sodium chloride 0.9% (100 ml) 100 ML IV (06:42)
[2022-09-10] MEDS: lidocaine 5% Patch 1 PATCH TOPICAL (08:37)
[2022-09-10] MEDS: levoFLOXacin 750 mg Tablet PO (08:37)
[2022-09-10] MEDS: pantoprazole DR 40 mg Tablet PO (08:37)
[2022-09-10] MEDS: enoxaparin 40 mg/0.4 mL Syringe SUBCUT (08:37)
[2022-09-10] MEDS: aspirin 81 mg EC Tablet PO (08:37)
[2022-09-10] MEDS: budesonide 0.5 mg/2 mL Neb INHALATION (08:50)
--- NOTE | 2022-09-10 11:31 | PM.DCS ---
Discharge Providers Date of Admission: 09/07/22 01:50 Date of Discharge: September 10, 2022 Attending Provider at Admission: Elaina Escobedo MD Attending Provider at Discharge: Rose Villa MD Primary Care Provider: Dominguez Capps DO Diagnoses at Discharge Discharge Diagnosis (1) Pneumonia due to 2019 novel coronavirus: Status: Acute (2) COPD (chronic obstructive pulmonary disease) with chronic bronchitis: Status: Acute (3) Acute and chronic respiratory failure with hypoxia: Status: Resolved Reason for Visit Reason for Visit: Has Phenumonia Brief History: As per Dr. Escobedo Ramya Medel is a 81 year old female with a past medical history of COPD, needs oxygen 3 L/min with exertion, hypertension, presented initially to emergency room on September 03, 2022 with complaints of cough, chills.? Chest x-ray had showed a right lower lobe opacity concerning for pneumonia.? She was discharged with cefdinir and azithromycin as patient preferred to return home on that day.? She presented back to the emergency room today complaining of increased generalized weakness, lethargy, oxygen requirement up to 4 to 5 L/min and feeling short of breath.? Rapid COVID tested and returned positive. Hospital Course Hospital Course 81-year-old lady with known COPD, home oxygen dependence, currently presenting with worsening hypoxia, wheezing on auscultation bilaterally, likely corporate 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 She refused CTA at admission. VQ scan negative for PE. She remains on dexamethasone and remdesivir. Improved and was sent home with empiric levofloxacin. Wheelchair was set up as per family request. Discharged home in stable condition. All questions answered. Back to baseline home oxygen. Physical Exam Narrative: General: Alert oriented x3, patient seen sitting up in bed on 3 L nasal cannula. HEENT: Normocephalic, atraumatic, EOMI, breathing normally and comfortably. [id number] present at bedside. Cardio: Regular rate rhythm, normal S1-S2, Respiratory: Fair bilateral air entry, ronchi at bses b/l, rest clear to auscultation with no wheezes or rhonchi present. GI: Abdomen soft, nontender, nondistended, bowel sounds + Extremities: no edema, no cyanosis Discharge Data Studies Completed and Pending Completed Studies During Hospitalization Category Date Time Status XR chest 1V portable [id number] Stat Exams 09/06/22 21:45 Completed NM pul vent and perfus* [id number] Routine Nuc Med 09/08/22 06:27 [place] [id number] Routine Ultrasound 09/07/22 02:42 Completed Pending at discharge Category Date Time Status Blood Culture Stat Lab 09/06/22 23:12 Results Radiology Impressions Chest X-Ray 09/06/22 21:45 IMPRESSION: 1. Stable chest. No definite evidence for active pneumonia. Venous Duplex 09/07/22 02:42 IMPRESSION: No evidence of deep vein thrombosis. Pulmonary Perfusion Imaging 09/08/22 06:27 IMPRESSION: 1. Low probability for pulmonary embolus. Laboratory Results WBC 4.9 10^3/uL (4.0-10.0) 09/08/22 04:40 RBC 4.77 10^6/uL (4.1-5.3) 09/08/22 04:40 Hgb 14.4 g/dL (11.5-15.3) 09/08/22 04:40 Hct 44.2 % (37.0-47.0) 09/08/22 04:40 MCV 92.7 fl (81-99) 09/08/22 04:40 MCH 30.2 pg (28.0-34.0) 09/08/22 04:40 MCHC 32.6 g/dL (30.0-36.0) 09/08/22 04:40 RDW 12.7 % (12.1-15.1) 09/08/22 04:40 Plt Count 269 10^3/cmm (130-400) 09/08/22 04:40 MPV 10.8 fL (7.4-10.4) H 09/08/22 04:40 Neut % (Auto) 69.6 % 09/08/22 04:40 Lymph % (Auto) 11.4 % 09/08/22 04:40 Wilkin % (Auto) 17.6 % 09/08/22 04:40 Eos % (Auto) 0.0 % 09/08/22 04:40 Baso % (Auto) 0.0 % 09/08/22 04:40 Neut # (Auto) 3.41 10^3/uL (1.8-7.7) 09/08/22 04:40 Lymph # (Auto) 0.6 10^3/uL (0.8-4.8) L 09/08/22 04:40 Wilkin # (Auto) 0.9 10^3/uL (0.2-0.9) 09/08/22 04:40 Eos # (Auto) 0.0 10^3/uL (0.0-0.8) 09/08/22 04:40 Baso # (Auto) 0.0 10^3/uL (0.0-0.1) 09/08/22 04:40 Nucleated RBC % (auto) 0 % 09/08/22 04:40 Nucleated RBCs # 0.0 /100WBC 09/08/22 04:40 D-Dimer 1.00 ug/mIFEU (0-0.59) H 09/07/22 05:14 Specimen Type Arterial 09/06/22 21:45 Sample Site Radial, left 09/06/22 21:45 ABG pH 7.46 (7.35-7.45) H 09/06/22 21:45 ABG pCO2 44.3 mmHg (35-45) 09/06/22 21:45 ABG pO2 62.4 mmHg (80.0-100.0) L 09/06/22 21:45 ABG HCO3 31.5 mmol/L (22-26) H 09/06/22 21:45 ABG Base Excess 6.7 mmol/L (-2.0-2.0) H 09/06/22 21:45 Daryn Test Pos 09/06/22 21:45 Hematocrit 48.9 % (37-47) H 09/06/22 21:45 Hgb O2 Saturation 92.2 % (95-100) L 09/06/22 21:45 Carboxyhemoglobin 0.9 %THgb (0.4-20.1) 09/06/22 21:45 Methemoglobin 0.6 % (0.4-1.5) 09/06/22 21:45 Total Hemoglobin 15.9 g/dL (12-16) 09/06/22 21:45 O2 Delivery Device Nc 09/06/22 21:45 O2 Liters/Min 3.5 % 09/06/22 21:45 Vmware Systems Administrator ID [email or web address] 09/06/22 21:45 Sodium 138 mmol/L (136-145) 09/10/22 04:28 Potassium 3.7 mmol/L (3.5-5.1) 09/10/22 04:28 Chloride 97 mmol/L (98-107) L 09/10/22 04:28 Carbon Dioxide 30 mmol/L (22-29) H 09/10/22 04:28 Anion Gap 14.7 (5-19) 09/10/22 04:28 BUN 14 mg/dL (8-23) 09/10/22 04:28 Creatinine 0.5 mg/dL (0.5-0.9) 09/10/22 04:28 GFR Calculation Not Reportable 09/10/22 04:28 Glucose 101 mg/dL (65-115) 09/10/22 04:28 Calculated Osmolality 287 mOsm/kg (285-295) 09/10/22 04:28 Lactic Acid 1.0 mmol/L (0.5-2.2) 09/06/22 21:52 Calcium 9.3 mg/dL (8.5-10.5) 09/10/22 04:28 Magnesium 1.9 mg/dL (1.7-2.3) 09/06/22 21:52 Total Bilirubin 0.3 mg/dL (0.15-1.2) 09/07/22 05:14 AST 19 U/L (0-32) 09/07/22 05:14 ALT 15 U/L (0-33) 09/07/22 05:14 Alkaline Phosphatase 74 U/L (35-105) 09/07/22 05:14 C-Reactive Protein 7.5 mg/L (0.0-4.9) H 09/10/22 04:28 NT-Pro-B Natriuret Pep 437 pg/mL (0-450) 09/06/22 21:52 Total Protein 5.8 g/dL (6.6-8.7) L 09/07/22 05:14 Albumin 2.7 g/dL (3.5-5.2) L 09/07/22 05:14 Globulin 3.1 g/dL (1.3-4.6) 09/07/22 05:14 Procalcitonin 0.02 ng/mL (0-0.5) 09/10/22 04:28 SARS-CoV-2 Ag (Rapid) positive (Negative) 09/06/22 22:41 Vitals Last Vital Signs Temp 98.2 F 09/10/22 07:47 Pulse 79 09/10/22 08:50 Resp 18 09/10/22 08:50 BP 159/83 09/10/22 07:47 Pulse Ox 96 09/10/22 08:50 O2 Del Method 09/10/22 08:50 O2 Flow Rate 3 09/10/22 08:50 Discharge Plan Discharge Patient Disposition: Home Condition: Stable Prescriptions: Continued cyanocobalamin (vitamin B-12) [Vitamin B-12] 1,000 mcg tablet extended release 1,000 mcg PO DAILY cholecalciferol (vitamin D3) 125 mcg (5,000 unit) capsule 125 mcg PO DAILY (DME) portable oxygen concentrator. See Rx Instructions .Route .MEDSUPPLY Qty: 1 0RF Rx Instructions: As directed 2 L via NC 24 hours a day Adult Probiotic 3 billion cell capsule 3,000 mmu cells PO QDAY aspirin [Adult Low Dose Aspirin] 81 mg tablet,delayed release (DR/EC) 81 mg PO DAILY Lumigan 0.01 % drops 1 drop ophthalmic (eye) DAILY albuterol sulfate 2.5 mg /3 mL (0.083 %) solution for nebulization 2.5 mg INHALATION Q4H PRN (Reason: shortness of breath or wheezing) Qty: 75 3RF (DME) oxygen home fill system See Rx Instructions .Route .MEDSUPPLY Qty: 1 0RF Rx Instructions: O2 2 L via NC 24 hours a day lisinopril 10 mg tablet 10 mg PO DAILY Discontinued cefdinir 300 mg capsule 300 mg PO BID 10 Days Qty: 20 0RF azithromycin [Zithromax TRI-LESLIE] 500 mg tablet See Rx Instructions .ROUTE .COMPLEX Qty: 3 0RF Rx Instructions: For 250 mg dose pack: take 500 mg today (day 1), then 250 mg for 4 days (days 2-5) Discharge Orders: Discharge Order (Routine); Ordered 09/10/22 Ordered By: Rose Villa Other Ambulatory Orders: DME: Wheelchair (Order) Location: None Selected Ordered By: Rose Villa Referrals: Dominguez Capps DO [Primary Care Provider] - 09/15/22 10:00 am Discharge Diet: Usual diet Discharge Activity: Resume usual activity and Oxygen as instructed Patient Instructions: Levofloxacin (By mouth), Pneumonia (GEN), COVID-19 (Coronavirus Disease 2019) (GEN), Opioid Safety Discharge Attestations Time Spent in Discharge Care*: less than 30 min Quality Metrics Clinical Quality Measures [ No reported AMI, CVA or VTE this stay] Coding Level of Care Code Acute Chg FW DC note Diagnoses Pneumonia due to 2019 novel coronavirus U07.1; J12.82 COPD (chronic obstructive pulmonary disease) with chronic bronchitis J44.9 Acute and chronic respiratory failure with hypoxia J96.21
--- NOTE | 2022-09-10 11:52 | PC.SOCIAL ---
Imm update Imm updated with patient's spouse by phone. Copy of page 2 provided. Patient's spouse verbalized understanding. Copy in chart initialed, dated and timed.
== END 2022-09-10 13:01 | disposition home or self-care (01) | DRG 177 ==
LOC: ER 09-07 01:29 → MEDSURG 09-07 02:16
PROVIDERS: Family Medicine; Admitting Provider Student in an Organized Health Care Education/Training Program; Emergency Provider Emergency Medicine; PCP Family Medicine; Visit Provider Internal Medicine
DX: U07.1 COVID-19 (principal); J12.82 Pneumonia due to coronavirus disease 2019; J43.9 Emphysema, unspecified; Z99.81 Dependence on supplemental oxygen; I10 Essential (primary) hypertension; Z87.891 Personal history of nicotine dependence; Z79.82 Long term (current) use of aspirin; Z79.51 Long term (current) use of inhaled steroids
CPT/HCPCS: 36415; 36600; 71045; 78014; 80048; 80053; 82805; 83605; 83735; 83880; 84145; 85025; 85378; 86140; 87040; 87426; 93005; 93970; 94640; 96365; 96372; 96375; 97110; 97161; 99285; A9540; A9567; J1100; J1650; J1956; J2405; J2765; J2930; J7030; J7626

== ENCOUNTER 2022-12-19 08:37 | Outpatient (CLI) | payer MEDICARE, SELFPAY ==
--- NOTE | 2022-12-19 08:50 | MM_ITS ---
WS: [id number] DIAGNOSTIC LEFT DIGITAL TOMOSYNTHESIS MAMMOGRAPHY WITH CAD. HISTORY: HX OF BREAST CA; RT mastectomy; LT LUMP UPPER OUTER QUAD mass. COMPARISON: 03/02/2009. Technique: CC, MLO and ML views. LEFT CC and MLO spot compressions. Breast composition: The breasts are heterogeneously dense, which may obscure small masses. Lobulated soft tissue mass at 12:00 is of increased density measuring 3.8 x 3.3 cm. Posterior to mid depth. Th ere is an additional mass near 9:00 at a middle depth measuring 1.8 x 2.5 cm. Benign calcifications. Both of these masses are new since 2019. No more recent mammographic examinations are available for barbara madera. LEFT breast ultrasound, limited. Lobulated soft tissue mass with angular margins at 10:00, 3 cm from the nipple measures 2.9 x 2.3 x 2 .0 cm. This corresponds to the mammographic mass in the medial breast. The larger mass at 12:00, 3 cm from the nipple is hypoechoic with lobulated angular margins. This mass measures 3.8 x 2.5 x 4.3 cm. Less than 2 cm separates the 2 masses. There is no obvious tumor connecting these masses. No axillary adenopathy. MM/[place] [id number] IMPRESSION: BI-RADS: 5-Highly Suggestive of Malignancy FOLLOW UP: Biopsy Recommended 1. Ultrasound-guided biopsy recommended of 2 masses within the LEFT breast. On e of these masses at 10:00 and the other is at 12:00 by less than 2 c m. 2. No axillary adenopathy.
== END 2022-12-19 08:38 | disposition home or self-care (01) ==
PROVIDERS: PCP Family Medicine; Visit Provider Surgery
DX: N63.21 Unspecified lump in the left breast, upper outer quadrant (principal); Z90.11 Acquired absence of right breast and nipple
CPT/HCPCS: 76642; 77061; G0279

== ENCOUNTER 2023-01-28 09:02 | Outpatient (RCR) | payer MEDICARE, SELFPAY | END 2023-02-27 23:59 | disposition home or self-care (01) | LOC: SPT 09:02 | PROVIDERS: PCP Family Medicine; Visit Provider Surgery | DX: C50.812 Malignant neoplasm of overlapping sites of left female breast (principal) | CPT/HCPCS: 97161 ==

== ENCOUNTER 2023-02-25 14:43 | Oncology outpatient (recurring) (ONCR) | payer MEDICARE, SELFPAY | END 2023-02-27 23:59 | disposition home or self-care (01) | PROVIDERS: PCP Family Medicine; Visit Provider Internal Medicine Hematology & Oncology | DX: C50.812 Malignant neoplasm of overlapping sites of left female breast (principal); Z17.0 Estrogen receptor positive status [ER+]; C77.8 Secondary and unspecified malignant neoplasm of lymph nodes of multiple regions; Z90.11 Acquired absence of right breast and nipple; Z87.891 Personal history of nicotine dependence | CPT/HCPCS: 99204 ==

== ENCOUNTER 2023-04-01 10:33 | Oncology outpatient (recurring) (ONCR) | payer MEDICARE, SELFPAY | END 2023-04-29 23:59 | disposition home or self-care (01) | PROVIDERS: PCP Family Medicine; Visit Provider Internal Medicine Medical Oncology | DX: C50.812 Malignant neoplasm of overlapping sites of left female breast (principal); Z17.0 Estrogen receptor positive status [ER+]; Z79.811 Long term (current) use of aromatase inhibitors; Z78.0 Asymptomatic menopausal state | CPT/HCPCS: 99214 ==

== ENCOUNTER 2023-04-24 12:49 | Outpatient (CLI) | payer MEDICARE, SELFPAY ==
--- NOTE | 2023-04-24 13:30 | XR_ITS ---
WS: [id number] DEXA (DUAL ENERGY X-RAY ABSORPTIOMETRY) Bone mineral density was performed using a [employer] machine. HISTORY: asymptomatic postmenopausal state COMPARISON: None available. Lumbar spine BMD (L1-L4): 0.739 g/cm2 T score: -3.7 Z score: -1.6 Total hip BMD: Left: 0.630 g/cm2. T score: -3.0 Z score: -0.7 Right: 0.658 g/cm2. T score: -2.8 Z score: -0.5 10 year probability of a major osteoporotic fracture is 40%. LEFT rotary scoliosis lumbar spine. XR/XR DEXA axial skeleton* [id number] IMPRESSION: OSTEOPOROSIS based upon the WHO classification for females.
== END 2023-04-24 12:50 | disposition home or self-care (01) ==
PROVIDERS: PCP Family Medicine; Visit Provider Internal Medicine Medical Oncology
DX: Z78.0 Asymptomatic menopausal state (principal)
CPT/HCPCS: 77080

== ENCOUNTER 2023-04-30 12:39 | Oncology outpatient (recurring) (ONCR) | payer MEDICARE, MEDICAID, SELFPAY ==
[2023-04-30 15:48] LABS: Basophils # 0.1 10^3/uL (0.0-0.1); Basophils % 1.7 %; Eosinophils # 0.2 10^3/uL (0.0-0.8); Eosinophils % 2.3 %; Hematocrit 48.7 % (37.0-47.0); Hemoglobin 15.8 g/dL (11.5-15.3); Lymphocytes # 1.8 10^3/uL (0.8-4.8); Lymphocytes % 22.9 %; Mean Corpuscular HGB Conc 32.4 g/dL (30.0-36.0); Mean Corpuscular Volume 95.7 fl (81-99); Monocytes # 0.8 10^3/uL (0.2-0.9); Neutrophils # 4.82 10^3/uL (1.8-7.7); Neutrophils % 62.8 %; Nucleated Red Blood Cells % 0 %; Platelet Count 267 10^3/cmm (130-400); Red Blood Count 5.09 10^6/uL (4.1-5.3); Red Cell Distribution Width 13.3 % (12.1-15.1); White Blood Count 7.7 10^3/uL (4.0-10.0)
[2023-04-30 15:51] LABS: Alanine Aminotransferase 8 U/L (0-33); Albumin Level 4.6 g/dL (3.5-5.2); Alkaline Phosphatase 99 U/L (35-105); Anion Gap 14.5 (5-19); Aspartate Amino Transferase 18 U/L (0-32); Blood Urea Nitrogen 15 mg/dL (8-23); Calcium 9.5 mg/dL (8.5-10.5); Carbon Dioxide 28 mmol/L (22-29); Chloride 104 mmol/L (98-107); Globulin 2.4 g/dL (1.3-4.6); Glucose 97 mg/dL (65-115); Osmolality Calculated 295 mOsm/kg (285-295); Potassium 4.5 mmol/L (3.5-5.1); Sodium 142 mmol/L (136-145); Total Bilirubin 0.5 mg/dL (0.15-1.2)
[2023-04-30 16:06] LABS: 25 Hydroxy Vitamin D 20 ng/mL (30-100)
== END 2023-05-29 23:59 | disposition home or self-care (01) ==
PROVIDERS: PCP Family Medicine; Visit Provider Internal Medicine Medical Oncology
DX: C50.812 Malignant neoplasm of overlapping sites of left female breast (principal); M81.0 Age-related osteoporosis without current pathological fracture; Z79.811 Long term (current) use of aromatase inhibitors
CPT/HCPCS: 36415; 80053; 82306; 85025; 99214

== ENCOUNTER → 2023-05-25 10:17 | Outpatient (BNVA) | payer MEDICARE, MEDICAID, SELFPAY | PROVIDERS: PCP Family Medicine; Visit Provider Family Medicine | DX: R30.0 Dysuria (principal); J32.9 Chronic sinusitis, unspecified; C50.812 Malignant neoplasm of overlapping sites of left female breast; R59.0 Localized enlarged lymph nodes | CPT/HCPCS: 81000 ==

== ENCOUNTER 2023-06-03 15:01 | Outpatient (CLI) | payer MEDICARE, MEDICAID, SELFPAY ==
--- NOTE | 2023-06-03 15:17 | US_ITS ---
WS: [id number] INDICATION: History of breast cancer. TECHNIQUE: Ultrasound LEFT axilla in the area of concern FINDINGS: Ultrasound LEFT axilla in the area of concern. There is a lobulated anechoic fluid collecti on compatible with postoperative seroma measuring approximately 2.4 x 1.3 x 0.8 cm. Findings have a b enign appearance. No other suspicious findings. US/US chest [id number] IMPRESSION: BI-RADS 2 benign Return to annual diagnostic mammography
== END 2023-06-03 15:02 | disposition home or self-care (01) ==
LOC: RAD 15:05
PROVIDERS: PCP Family Medicine; Visit Provider Nurse Practitioner Family
DX: C50.812 Malignant neoplasm of overlapping sites of left female breast (principal); N63.20 Unspecified lump in the left breast, unspecified quadrant; Z90.13 Acquired absence of bilateral breasts and nipples
CPT/HCPCS: 76604

== ENCOUNTER 2023-07-15 15:14 | Oncology outpatient (recurring) (ONCR) | payer MEDICARE, MEDICAID, SELFPAY | END 2023-07-30 23:59 | disposition home or self-care (01) | LOC: ONCMED 15:14 | PROVIDERS: PCP Family Medicine; Visit Provider Internal Medicine Medical Oncology | DX: C50.812 Malignant neoplasm of overlapping sites of left female breast (principal); Z17.0 Estrogen receptor positive status [ER+]; M81.0 Age-related osteoporosis without current pathological fracture; Z79.811 Long term (current) use of aromatase inhibitors; Z92.21 Personal history of antineoplastic chemotherapy; Z90.13 Acquired absence of bilateral breasts and nipples; Z87.891 Personal history of nicotine dependence; R22.2 Localized swelling, mass and lump, trunk; Z85.42 Personal history of malignant neoplasm of other parts of uterus; Z85.3 Personal history of malignant neoplasm of breast | CPT/HCPCS: 99214 ==

== ENCOUNTER 2023-07-31 13:42 | Outpatient (CLI) | payer MEDICARE, MEDICAID, SELFPAY ==
--- NOTE | 2023-07-31 14:00 | CT_ITS ---
WS: [id number] CT chest wo con [id number] HISTORY: chest wall nodule, history of bilateral breast cancer with mastectomy. TECHNIQUE: Axial imaging performed through the thorax. Coronal and sagittal reformats are submitted. All CT scans at [facility] use at least one of these dose optimization techniques: automated exposure control; mA and/or kV adjustment per patient size (includes targeted exams where dose is mat ched to clinical indication); or iterative reconstruction. CONTRAST: None DLP: 185.48 mGy.cm COMPARISON: Chest ultrasound 06/03/2023. Lungs and central airway: Severe centrilobular emphysema. Pleural thickening and fibrosis in the uppe r lung horvath. 8 mm ill-defined opacification superior segment RIGHT lower lobe. Mild pleural thicken ing and scarring periphery RIGHT lower lobe. LEFT upper lobe granuloma. Pleura: Normal. No pleural effusion. Heart and pericardium: Moderate cardiomegaly. No effusion. Mediastinum and ryder: No mediastinum or hilar adenopathy. Vessels: Moderate ectasia and atherosclerosis aorta. Normal sized pulmonary artery. Chest wall and lower neck: Lobulated soft tissue mass LEFT lateral chest wall extends over a length o f 3.0 cm with a transverse diameter of 1.5 cm. This is a similar shape as a postoperative seroma prev iously described on 12/19/2022. Size is also similar. Cannot confirm this is the palpable abnormality as no skin marker was placed. Status post bilateral mastectomies. Abdomen: Suprarenal moderate atherosclerotic calcification. Indeterminant distal RIGHT paraesophageal lymph node and 1.2 cm. Osseous structures: Moderate increase in thoracic kyphosis. No destructive bone lesions. IMPRESSION: 1. Status post bilateral mastectomies. 2. Lobulated soft tissue mass in the LEFT lateral chest wall. No skin marker was placed to indicate t his is the palpable nodule of concern. This mass measures 1.5 x 3.0 cm. Very similar in appearance to the breast ultrasound from 12/19/2022. This is probably a seroma. Recommend ultrasound evaluation of the soft tissue mass which is palpable to better characterize. This may be a postoperative seroma. Ul trasound would help better determine if this is a solid mass. 3. Chronic emphysema. Ill-defined opacification superior segment RIGHT lower lobe. Consider follow-up chest CT in 3 months. Pneumonitis versus early neoplasm. 4. Indeterminate distal RIGHT paraesophageal lymph node at 1.2 cm. This can be followed in 3 months a lso by chest CT.
== END 2023-07-31 13:43 | disposition home or self-care (01) ==
PROVIDERS: PCP Family Medicine; Visit Provider Internal Medicine Medical Oncology
DX: C50.812 Malignant neoplasm of overlapping sites of left female breast (principal); R22.2 Localized swelling, mass and lump, trunk; Z90.13 Acquired absence of bilateral breasts and nipples; J43.9 Emphysema, unspecified; R91.8 Other nonspecific abnormal finding of lung field
CPT/HCPCS: 71250

== ENCOUNTER 2023-08-26 11:49 | Oncology outpatient (recurring) (ONCR) | payer MEDICARE, MEDICAID, SELFPAY | END 2023-08-29 23:59 | disposition home or self-care (01) | LOC: ONCMED 11:50 | PROVIDERS: PCP Family Medicine; Visit Provider Internal Medicine Medical Oncology | DX: C50.812 Malignant neoplasm of overlapping sites of left female breast (principal); M81.0 Age-related osteoporosis without current pathological fracture; Z79.811 Long term (current) use of aromatase inhibitors; N17.0 Acute kidney failure with tubular necrosis; Z79.899 Other long term (current) drug therapy | CPT/HCPCS: 99214 ==

== ENCOUNTER 2023-11-10 10:52 | Outpatient (RCR) | payer MEDICARE, MEDICAID, SELFPAY | END 2023-11-29 23:59 | disposition home or self-care (01) | LOC: SPT 10:52 | PROVIDERS: PCP Family Medicine; Visit Provider Surgery | DX: Z98.890 Other specified postprocedural states (principal) | CPT/HCPCS: 97140; 97163 ==

== ENCOUNTER 2023-11-30 06:00 | Outpatient (RCR) | payer MEDICARE, MEDICAID, SELFPAY | END 2023-12-30 23:59 | disposition home or self-care (01) | LOC: SPT 06:00 | PROVIDERS: PCP Family Medicine; Visit Provider Surgery | DX: Z90.13 Acquired absence of bilateral breasts and nipples (principal); Z85.3 Personal history of malignant neoplasm of breast; M79.629 Pain in unspecified upper arm | CPT/HCPCS: 97140 ==

== ENCOUNTER 2024-02-01 10:47 | Oncology outpatient (recurring) (ONCR) | payer MEDICARE, MEDICAID, SELFPAY ==
[2024-02-01 12:18] LABS: Basophils # 0.1 10^3/uL (0.0-0.1); Eosinophils # 0.1 10^3/uL (0.0-0.8); Eosinophils % 1.6 %; Hematocrit 46.7 % (36-47); Lymphocytes # 1.9 10^3/uL (0.8-4.8); Lymphocytes % 26.3 %; Mean Corpuscular HGB Conc 32.3 g/dL (30-55); Mean Corpuscular Hemoglobin 31.1 pg (27-33); Mean Corpuscular Volume 96.3 fl (85-98); Mean Platelet Volume 10.6 fL (7.4-10.4); Monocytes # 0.6 10^3/uL (0.2-0.9); Monocytes % 7.8 %; Neutrophils # 4.39 10^3/uL (1.8-7.7); Nucleated Red Blood Cells % 0 %; Platelet Count 337 10^3/cmm (157-399); Red Blood Count 4.85 10^6/uL (3.85-5.65); Red Cell Distribution Width 13.7 % (12.1-15.1); White Blood Count 7.07 10^3/uL (3.29-11.43)
[2024-02-01 13:03] LABS: 25 Hydroxy Vitamin D 27 ng/mL (30-100); Alanine Aminotransferase 7 U/L (0-33); Albumin Level 4.2 g/dL (3.5-5.2); Alkaline Phosphatase 98 U/L (35-105); Aspartate Amino Transferase 15 U/L (0-32); Blood Urea Nitrogen 16 mg/dL (8-23); Calcium 9.4 mg/dL (8.5-10.5); Carbon Dioxide 29 mmol/L (22-29); Chloride 100 mmol/L (98-107); Globulin 2.6 g/dL (1.3-4.6); Glucose 72 mg/dL (65-115); Osmolality Calculated 288 mOsm/kg (285-295); Sodium 139 mmol/L (136-145); Total Bilirubin 0.5 mg/dL (0.15-1.2); Total Protein 6.8 g/dL (6.6-8.7)
== END 2024-02-28 23:59 | disposition home or self-care (01) ==
PROVIDERS: PCP Family Medicine; Visit Provider Internal Medicine Medical Oncology
DX: C50.812 Malignant neoplasm of overlapping sites of left female breast (principal); Z17.0 Estrogen receptor positive status [ER+]; Z85.3 Personal history of malignant neoplasm of breast; Z85.42 Personal history of malignant neoplasm of other parts of uterus; M81.0 Age-related osteoporosis without current pathological fracture; E55.9 Vitamin D deficiency, unspecified; Z79.899 Other long term (current) drug therapy; Z92.21 Personal history of antineoplastic chemotherapy; M96.843 Postprocedural seroma of a musculoskeletal structure following other procedure; Z90.13 Acquired absence of bilateral breasts and nipples; Z87.891 Personal history of nicotine dependence
CPT/HCPCS: 36415; 80053; 82306; 85025; 99214

== ENCOUNTER 2024-02-19 13:54 | Outpatient (CLI) | payer MEDICARE, MEDICAID, SELFPAY ==
--- NOTE | 2024-02-19 14:00 | CT_ITS ---
WS: [id number] CT CHEST, ABDOMEN, AND PELVIS TECHNIQUE: Noncontrast CT of the chest, abdomen, and pelvis with coronal and sagittal reformatted joel ges. CLINICAL INFORMATION: surveillance; history of breast and uterine cancer COMPARISON: CT chest 07/31/2023 DLP: 638.[address] scans at [facility] use at least one of these dose optimization techniques: automated e xposure control; mA and/or kV adjustment per patient size (includes targeted exams where dose is matc hed to clinical indication); or iterative reconstruction. IV contrast not administered due to history of iodine or contrast allergy. CT CHEST: Prior postoperative changes of bilateral mastectomies. Previously described seroma in the LEFT latera l chest wall is stable in appearance compared to previous measuring 1.6 x 1.5 x 2.9 cm. 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 Stable pleural thickening and fibrosis in the lung apices. N o axillary lymphadenopathy. Subsegmental atelectasis with pleural parenchymal scarring in the lung ba ses. Calcified granuloma LEFT upper lobe. Previously described fibrotic opacity in the superior segme nt RIGHT lower lobe appears slightly improved compared to previous. No new/suspicious pulmonary paren chymal abnormalities. No evidence of metastatic disease in the chest. Cardiomegaly. No mediastinal or hilar lymphadenopathy. Aortic calcification. Coronary calcification. 12 mm periesophageal lymph node at the GE junction is unchanged in appearance. Moderate thoracic kyph osis. Small esophageal hiatal hernia. CT ABDOMEN AND PELVIS: Mild lumbar curve. Slight anterolisthesis L4 on L5. Small esophageal hiatal hernia. Noncontrast liver is normal. Normal noncontrast spleen. Aortic calcification. Abdominal aortic aneurysm measuring 2.5 x 2.7 cm AP by transverse. Noncontrast pancreas appears normal. Adrenal glands are normal. No hydron ephrosis in either kidney. Malrotation RIGHT kidney. Tortuous sigmoid colon with extensive diverticulosis. No evidence of acute diverticulitis. Mild RIGHT colon and transverse colon constipation. Rectal constipation. No free fluid in the pelvis. No abdomi nal or pelvic lymphadenopathy. No inguinal lymphadenopathy. No evidence of metastatic disease in the abdomen or pelvis. IMPRESSION: 1. No evidence of new or progressed metastatic disease in the chest. 2. Stable 12 mm paraesophageal lymph node at the GE junction. 3. Similar-appearing pleural-parenchymal scarring in both lungs. 4. Stable seroma LEFT lateral chest wall. 5. No evidence of metastatic disease in the abdomen or pelvis. 6. Abdominal aortic aneurysm measuring 2.5 x 2.7 cm AP by transverse. 7. Small esophageal hiatal hernia. 8. Sigmoid diverticulosis. 9. Prior hysterectomy. 10. No other acute findings.
== END 2024-02-19 13:55 | disposition home or self-care (01) ==
LOC: RAD 13:55
PROVIDERS: PCP Family Medicine; Visit Provider Nurse Practitioner Family
DX: Z85.3 Personal history of malignant neoplasm of breast (principal); Z85.42 Personal history of malignant neoplasm of other parts of uterus; K44.9 Diaphragmatic hernia without obstruction or gangrene; K57.30 Diverticulosis of large intestine without perforation or abscess without bleeding
CPT/HCPCS: 71250; 74176

== ENCOUNTER → 2024-04-07 11:00 | Outpatient (BNVA) | payer MEDICARE, MEDICAID, SELFPAY | PROVIDERS: PCP Family Medicine; Visit Provider Podiatrist Foot & Ankle Surgery | DX: M21.621 Bunionette of right foot; M21.622 Bunionette of left foot; L85.1 Acquired keratosis [keratoderma] palmaris et plantaris; G47.62 Sleep related leg cramps | CPT/HCPCS: 17110; 99204 ==

== ENCOUNTER → 2024-05-16 10:57 | Outpatient (BNVA) | payer MEDICARE, MEDICAID, SELFPAY | PROVIDERS: PCP Family Medicine; Visit Provider Podiatrist Foot & Ankle Surgery | DX: M21.621 Bunionette of right foot (principal); M21.622 Bunionette of left foot; L85.1 Acquired keratosis [keratoderma] palmaris et plantaris; G47.62 Sleep related leg cramps | CPT/HCPCS: 99213 ==

== ENCOUNTER → 2024-05-17 14:57 | Outpatient (BNVA) | payer MEDICARE, MEDICAID, SELFPAY | PROVIDERS: PCP Family Medicine; Visit Provider Nurse Practitioner Family | DX: I10 Essential (primary) hypertension (principal) | CPT/HCPCS: 80053; 80061 ==

== ENCOUNTER 2024-09-13 11:26 | Oncology outpatient (recurring) (ONCR) | payer MEDICARE, MEDICAID, SELFPAY ==
[2024-09-13 12:04] LABS: Basophils # 0.1 10^3/uL (0.0-0.1); Basophils % 1.5 %; Eosinophils # 0.2 10^3/uL (0.0-0.8); Eosinophils % 3.2 %; Hematocrit 49.2 % (36-47); Lymphocytes # 1.5 10^3/uL (0.8-4.8); Lymphocytes % 24.6 %; Mean Corpuscular HGB Conc 33.1 g/dL (30-55); Mean Corpuscular Hemoglobin 31.2 pg (27-33); Mean Corpuscular Volume 94.3 fl (85-98); Mean Platelet Volume 10.5 fL (7.4-10.4); Monocytes # 0.6 10^3/uL (0.2-0.9); Neutrophils # 3.57 10^3/uL (1.8-7.7); Neutrophils % 60.5 %; Nucleated Red Blood Cells % 0 %; Platelet Count 246 10^3/cmm (157-399); Red Blood Count 5.22 10^6/uL (3.85-5.65); Red Cell Distribution Width 12.9 % (12.1-15.1)
[2024-09-13 12:28] LABS: Alanine Aminotransferase 10 U/L (0-33); Albumin Level 4.6 g/dL (3.5-5.2); Alkaline Phosphatase 119 U/L (35-105); Anion Gap 13.1 (5-19); Aspartate Amino Transferase 17 U/L (0-32); Blood Urea Nitrogen 17 mg/dL (8-23); Calcium 9.5 mg/dL (8.5-10.5); Carbon Dioxide 30 mmol/L (22-29); Chloride 102 mmol/L (98-107); Creatinine Clr Calc Pharmacy 49.4304; Globulin 2.7 g/dL (1.3-4.6); Glucose 91 mg/dL (65-115); Osmolality Calculated 293 mOsm/kg (285-295); Potassium 4.1 mmol/L (3.5-5.1); Sodium 141 mmol/L (136-145); Total Bilirubin 0.6 mg/dL (0.15-1.2); Total Protein 7.3 g/dL (6.6-8.7)
== END 2024-09-29 23:59 | disposition home or self-care (01) ==
PROVIDERS: Nurse Practitioner Family; PCP Family Medicine; Visit Provider Internal Medicine Medical Oncology
DX: C50.812 Malignant neoplasm of overlapping sites of left female breast (principal); M81.0 Age-related osteoporosis without current pathological fracture; I87.2 Venous insufficiency (chronic) (peripheral)
CPT/HCPCS: 36415; 80053; 85025; 99214

== ENCOUNTER 2024-10-12 08:44 | Oncology outpatient (recurring) (ONCR) | payer MEDICARE, MEDICAID, SELFPAY ==
--- NOTE | 2024-10-12 09:00 | USCV_ITS ---
Ramya Medel Age: 83 Gender: F : 1940 Exam Date: 10/12/2024 09:12 Ordering Phys: Teresa Nguyen APRN Technologist: YUAN Exam Location: [facility] [place] Indication: HISTORY: PROCEDURES: FINDINGS: The superficial and deep veins were found to be easily compressible with spontaneous blood flow. Non pulsatile flow pattern. Venous reflux was noted in the greater saphenous vein segments below the knee level on both sides. The reflux time was 1.94-second on the right and 1.09 seconds on the left. The venous diameter was 0.36 cm and 0.33 cm respectively . The venous segments were at a depth of 0.99 cm on the right side and 1.29 cm on the left side CONCLUSIONS 1. No evidence of DVT in the above-mentioned identifiable veins. 2. Significant venous reflux of greater than 500 ms were noted at the below-knee segments of the greater saphenous vein on both sides. This segment was somewhat superficial on the right side(at a depth of 0.99 cm from the surface). The details of the reflux time, venous diameter and depth of the surface are as mentioned above Dr Kiana Muhammad MD [facility] (Electronically Signed) Final Date: 14 October 2024 20:47 S
== END 2024-10-29 23:59 | disposition home or self-care (01) ==
PROVIDERS: PCP Family Medicine; Visit Provider Nurse Practitioner Family
DX: I87.2 Venous insufficiency (chronic) (peripheral)
CPT/HCPCS: 93970

== ENCOUNTER → 2024-12-20 14:03 | Outpatient (BNVA) | payer MEDICARE, MEDICAID, SELFPAY | PROVIDERS: PCP Family Medicine; Referring Provider Nurse Practitioner Family; Visit Provider Internal Medicine Cardiovascular Disease | DX: R07.9 Chest pain, unspecified (principal) | CPT/HCPCS: 93005 ==

== ENCOUNTER → 2025-01-10 14:31 | Outpatient (BNVA) | payer MEDICARE, MEDICAID, SELFPAY | PROVIDERS: PCP Family Medicine; Visit Provider Family Medicine | DX: R05.9 Cough, unspecified (principal) | CPT/HCPCS: 87400; 87420; 87426 ==

== ENCOUNTER → 2025-01-23 10:30 | Outpatient (BNVA) | payer MEDICARE, MEDICAID, SELFPAY | PROVIDERS: PCP Family Medicine; Visit Provider Family Medicine | DX: I10 Essential (primary) hypertension (principal); D64.9 Anemia, unspecified; R07.9 Chest pain, unspecified; R22.30 Localized swelling, mass and lump, unspecified upper limb; R06.02 Shortness of breath; C50.812 Malignant neoplasm of overlapping sites of left female breast; R59.0 Localized enlarged lymph nodes; R79.89 Other specified abnormal findings of blood chemistry; E83.42 Hypomagnesemia; E55.9 Vitamin D deficiency, unspecified | CPT/HCPCS: 80053; 80061; 82306; 82607; 82728; 82746; 83540; 83735; 84439; 84443; 85025 ==

== ENCOUNTER 2025-02-11 16:15 | Emergency (ER) | payer MEDICARE, MEDICAID, SELFPAY ==
--- NOTE | 2025-02-11 16:17 | XRR_ITS ---
PROCEDURE INFORMATION: Exam: XR Chest Exam date and time: 02/11/2025 4:40 PM Age: 84 years old Clinical indication: Shortness of breath; Prior surgery; Surgery date: 6+ months; Surgery type: Bilateral mastectomy TECHNIQUE: Imaging protocol: Radiologic exam of the chest. Views: 1 view. COMPARISON: CT chest abdpel [id number] 02/19/2024 2:52 PM FINDINGS: Lungs: Pulmonary hyperexpansion with emphysematous changes. Chronic interstitial coarsening in the lung bases. No focal airspace disease. Pleural spaces: Unremarkable. No pleural effusion. No pneumothorax. Heart/Mediastinum: Unremarkable. No cardiomegaly. Vasculature: Atherosclerotic aortic calcifications. Bones/joints: Dextroscoliosis of the thoracic spine. XR/XR chest 1V portable [id number] IMPRESSION: No acute cardiopulmonary findings.
[2025-02-11 16:18] VITALS: BP 171/92; PULSE 88; RESP 20; TEMP 36.5; O2SAT 90
--- NOTE | 2025-02-11 16:29 | ECG_ITS ---
[facility] Date: 2025-02-11 Pat Name: Ramya Medel Department: Room: Gender: Female [employer]ter: : 1940 Requested By: Josie Nam Order Number: [id number] Wilmer MD: KACI PARKER Measurements Intervals [place] Rate: 86 P: 59 MT: 156 QRS: -37 QRSD: 90 T: 63 QT: 368 QTc: 441 Interpretive Statements SINUS RHYTHM POSSIBLE LEFT ATRIAL ENLARGEMENT [-0.1mV P-WAVE IN V1/V2] LEFT AXIS DEVIATION [QRS AXIS < -30] Compared to ECG 12/20/2024 14:09:28 Left-axis deviation now present Left anterior fascicular block no longer present Myocardial infarct finding no longer present Electronically Signed On 02-13-2025 18:11:01 CDT by KACI PARKER [email or web address]
[2025-02-11 17:10] LABS: Basophils # 0.1 10^3/uL (0.0-0.1); Basophils % 1.1 %; Eosinophils # 0.1 10^3/uL (0.0-0.8); Eosinophils % 2.2 %; Hematocrit 49.8 % (36-47); Lymphocytes # 1.4 10^3/uL (0.8-4.8); Lymphocytes % 30.4 %; Mean Corpuscular HGB Conc 32.3 g/dL (30-55); Mean Corpuscular Volume 92.9 fl (85-98); Mean Platelet Volume 10.1 fL (7.4-10.4); Monocytes # 0.6 10^3/uL (0.2-0.9); Monocytes % 13.4 %; Neutrophils # 2.45 10^3/uL (1.8-7.7); Neutrophils % 52.7 %; Nucleated Red Blood Cells % 0 %; Platelet Count 243 10^3/cmm (157-399); Red Blood Count 5.36 10^6/uL (3.85-5.65); Red Cell Distribution Width 12.8 % (12.1-15.1); White Blood Count 4.64 10^3/uL (3.29-11.43)
[2025-02-11 17:23] VITALS: BP 186/123; PULSE 85; RESP 18; O2SAT 93
--- NOTE | 2025-02-11 17:28 | W.ED.SOB ---
HPI - SOB/Dyspnea General: Chief Complaint: Shortness of Breath/Dyspnea Stated Complaint: wheezing SOB Time Seen by Provider: 02/11/25 16:16 History of Present Illness: HPI Narrative: 84-year-old female with a history of breast cancer, hypertension, COPD, chronic hypoxemic respiratory failure on 2 L nasal cannula at all times, and tobacco dependence who presents to the emergency room shortness of breath. She says she has had increasing shortness of breath, productive cough and wheezing for couple days now. She was seen by her PCP last week and given Levaquin for the symptoms. She says she has some intermittent pleuritic chest pain that goes into her back. Worse when she sits up straight. She does have chronic edema in her lower extremities which her family says is venous stasis. No altered mental status. No focal motor deficits. No abdominal pain. No vomiting. She has not had increased oxygen requirements Related Data Home Medications ?Medication ?Instructions ?Recorded ?Confirmed gabapentin 300 mg capsule See Rx Instructions .Route 12/20/24 02/06/25 .COMPLEX PRN pantoprazole 40 mg tablet,delayed 40 mg PO DAILY 02/06/25 02/06/25 release Previous Rx's ?Medication ?Instructions ?Recorded albuterol sulfate 90 mcg/actuation 1 inh inhalation QID PRN shortness 01/18/24 aerosol inhaler of breath or wheezing #8.5 grams amlodipine 5 mg tablet 5 mg PO DAILY #90 tabs 01/10/25 clonidine HCl 0.1 mg tablet 0.1 mg PO BID PRN hypertensive 01/10/25 urgency #30 tabs lisinopril 20 mg tablet 20 mg PO DAILY #90 tabs 01/23/25 levofloxacin 500 mg tablet 500 mg PO DAILY #7 tabs 02/06/25 montelukast 10 mg tablet 10 mg PO DAILY #30 tabs 02/06/25 (Singulair) ondansetron 4 mg disintegrating 4 mg PO Q8H PRN nausea and 02/06/25 tablet vomiting #30 tabs benzonatate 200 mg capsule 200 mg PO TID PRN cough #30 caps 02/11/25 doxycycline hyclate 100 mg capsule 100 mg PO BID 7 days #14 caps 02/11/25 ondansetron 4 mg disintegrating 4 mg PO Q8H PRN nausea and 02/11/25 tablet vomiting #10 tabs prednisone 20 mg tablet 60 mg (3 x 20 mg) PO DAILY 5 days 02/11/25 #15 tabs Allergies Allergy/AdvReac Type Severity Reaction Status Date / Time prednisone Allergy Intermediate nausea Verified 02/11/25 16:16 Penicillins Allergy Unknown unknown Verified 02/11/25 16:16 cetirizine Allergy ALGY-Swell Verified 02/11/25 16:16 Lip/Tongue/Throat iodine Allergy ALGY-Anaphy Verified 02/11/25 16:16 laxis morphine AdvReac Mild itching Verified 02/11/25 16:16 Review of Systems Narrative: Constitutional symptoms: Negative except as documented in HPI. Skin symptoms: Negative except as documented in HPI. Eye symptoms: Negative except as documented in HPI. ENMT symptoms: Negative except as documented in HPI. Respiratory symptoms: Negative except as documented in HPI. Cardiovascular symptoms: Negative except as documented in HPI. Gastrointestinal symptoms: Negative except as documented in HPI. Genitourinary symptoms: Negative except as documented in HPI. Musculoskeletal symptoms: Negative except as documented in HPI. Neurologic symptoms: Negative except as documented in HPI. Psychiatric symptoms: Negative except as documented in HPI. Endocrine symptoms: Negative except as documented in HPI. PFSH ED PFSH: Medical History Vitamin D deficiency Osteoporosis Cancer of left breast History of uterine cancer (1999) History of right breast cancer (1999) Pneumonia Hypertension COPD (chronic obstructive pulmonary disease) with emphysema Family History Father Heart attack Mother Melanoma Sister Breast cancer Brother Prostate cancer Social History Smoking and tobacco/nicotine status: never used tobacco/nicotine Quit status (tobacco/nicotine): has quit using Year quit tobacco: 2018 Former quit date comment: smoked x 20 years Alcohol intake: never Physical Exam Narrative: EXAM NARRATIVE: General: Alert, no acute distress. Skin: Warm, dry. Head: Normocephalic, atraumatic. Neck: Supple, trachea midline. Eye: Extraocular movements are intact. Ears, nose, mouth and throat: Oral mucosa moist. Cardiovascular: Regular rate and rhythm, Normal peripheral perfusion. Respiratory: coarse, scattered wheeze, mild increased wob. tachypnea, breath sounds are equal, Symmetrical chest wall expansion. Gastrointestinal: Soft, Nontender, Non distended, Normal bowel sounds. Musculoskeletal: Normal ROM, no deformity. Neurological: Alert and oriented, No focal neurological deficit observed. Psychiatric: Cooperative, appropriate mood & affect. Course Vital Signs: Vital signs: Vital Signs Temperature 97.7 F 02/11/25 16:18 Pulse Rate 78 02/11/25 19:28 Respiratory Rate 18 02/11/25 17:23 Blood Pressure 177/86 02/11/25 19:28 Pulse Oximetry 93 02/11/25 19:28 Oxygen Delivery Me thod Nasal Cannula 02/11/25 19:10 Oxygen Flow Rate 2 02/11/25 19:10 MDM - SOB/Dyspnea Medical Decision Making Differential diagnosis for patient with shortness of breath includes but is not limited to and based on the above HPI, review of systems and physical exam: Pneumonia. Bronchitis. Asthma or COPD with acute exacerbation. Acute coronary syndrome / MD. Pulmonary embolism. Anxiety. Congestive heart failure. Viral infections including influenza and Covid-19. Atrial fibrillation. Anxiety. Pleural effusion. Pneumothorax. Orders placed to evaluate differential diagnosis based on the above differential, HPI and physical exam EKG: Time 1828. Normal sinus rhythm, No ST-T changes, no ectopy, normal VT & QRS intervals, This was reviewed and interpreted by myself the ER physician at 1835. Chest x-ray: No acute process. No infiltrate. No pneumothorax. This was reviewed and interpreted by myself the emergency room physician. I also reviewed the radiology report. Lab Review: Laboratory results were reviewed and interpreted by myself the emergency room physician. No leukocytosis. No anemia. No renal failure. proBNP is not elevated. Serial cardiac markers are negative. Flu COVID and RSV are negative. I reviewed the patient's medical record. Reexamination: Patient remained stable. No increased work of breathing. No altered mental status. No focal motor deficits. I discussed findings at length with family. Discussed what they had told me earlier was probably true that she has some swelling in her legs from venous stasis. She has no signs of heart failure. No signs of pneumonia on her x-ray. I am going to change her antibiotic over for bronchitis and placed her on some steroids. She has an allergy to prednisone that is nausea so I called her in some Zofran. Patient and family agree with plan. Assessment and plan: Bronchitis COPD with acute exacerbation Chronic hypoxemic respiratory failure ?Stable on her home 2 L nasal cannula. - Discharged home - Discussed plan with patient. Answered any questions. - Evaluation and treatment of this problem were appropriate in the emergency setting. Lab Data 02/11/25 17:00 02/11/25 17:00 Labs/Radiology: Radiology Impressions Chest X-Ray 02/11/25 16:17 IMPRESSION: No acute cardiopulmonary findings. Laboratory Results WBC 4.64 10^3/uL (3.29-11.43) 02/11/25 17:00 RBC 5.36 10^6/uL (3.85-5.65) 02/11/25 17:00 Hgb 16.10 g/dL (11.27-16.99) 02/11/25 17:00 Hct 49.8 % (36-47) H 02/11/25 17:00 MCV 92.9 fl (85-98) 02/11/25 17:00 MCH 30.0 pg (27-33) 02/11/25 17:00 MCHC 32.3 g/dL (30-55) 02/11/25 17:00 RDW 12.8 % (12.1-15.1) 02/11/25 17:00 Plt Count 243 10^3/cmm (157-399) 02/11/25 17:00 MPV 10.1 fL (7.4-10.4) 02/11/25 17:00 Neut % (Auto) 52.7 % 02/11/25 17:00 Lymph % (Auto) 30.4 % 02/11/25 17:00 [place] % (Auto) 13.4 % 02/11/25 17:00 Eos % (Auto) 2.2 % 02/11/25 17:00 Baso % (Auto) 1.1 % 02/11/25 17:00 Neut # (Auto) 2.45 10^3/uL (1.8-7.7) 02/11/25 17:00 Lymph # (Auto) 1.4 10^3/uL (0.8-4.8) 02/11/25 17:00 [place] # (Auto) 0.6 10^3/uL (0.2-0.9) 02/11/25 17:00 Eos # (Auto) 0.1 10^3/uL (0.0-0.8) 02/11/25 17:00 Baso # (Auto) 0.1 10^3/uL (0.0-0.1) 02/11/25 17:00 Nucleated RBC % (auto) 0 % 02/11/25 17:00 Nucleated RBCs # 0.0 /100WBC 02/11/25 17:00 Specimen Type Arterial 02/11/25: Sample Site Radial, right 02/11/25 17: ABG pH 7.42 (7.35-7.45) 02/11/25 17: ABG pCO2 46.1 mmHg (35-45) H 02/11/25 17: ABG pO2 61.4 mmHg (80.0-100.0) L 02/11/25: ABG PO2/FiO2 Ratio 219 02/11/25 17: ABG HCO3 29.7 mmol/L (22-26) H 02/11/25: ABG O2 Saturation 92.8 02/11/25 17: ABG Base Excess 4.2 mmol/L (-2.0-2.0) H 02/11/25 17: Daryn Test Pos 02/11/25: A-a O2 Gradient 10.0 mmHg (5-10) 02/11/25: Hematocrit 48.1 % (37-47) H 02/11/25 17: Hgb O2 Saturation 91.8 % (95-100) L 02/11/25: Carboxyhemoglobin 0.9 %THgb (0.4-20.1) 02/11/25: Methemoglobin 0.2 % (0.4-1.5) L 02/11/25 17: Total Hemoglobin 15.7 g/dL (12-16) 02/11/25 17: Sodium 143.0 mmol/L (131-143) 02/11/25: Potassium 3.5 mmol/L (3.5-5.0) 02/11/25 17: Glucose 94.0 mg/dL (70-115) 02/11/25: Ionized Calcium 1.2 mmol/L (1.1-1.4) 02/11/25: O2 Delivery Device Nc 02/11/25 17:27 O2 Liters/Min 2.0 % 02/11/25 17:27 FiO2 28.0 % 02/11/25 17:27 Automatic Spinning Lathe Operator ID Butch 02/11/25 17:27 Sodium 139 mmol/L (136-145) 02/11/25 17:00 Potassium 3.8 mmol/L (3.5-5.1) 02/11/25 17:00 Chloride 99 mmol/L (98-107) 02/11/25 17:00 Carbon Dioxide 28 mmol/L (22-29) 02/11/25 17:00 Anion Gap 15.8 (5-19) 02/11/25 17:00 BUN 11 mg/dL (8-23) 02/11/25 17:00 Creatinine 0.6 mg/dL (0.5-0.9) 02/11/25 17:00 GFR Calculation Not Reportable 02/11/25 17:00 Glucose 92 mg/dL (65-115) 02/11/25 17:00 Calculated Osmolality 287 mOsm/kg (285-295) 02/11/25 17:00 Lactic Acid 0.9 mmol/L (0.5-2.2) 02/11/25 17:00 Calcium 9.8 mg/dL (8.5-10.5) 02/11/25 17:00 Total Bilirubin 0.5 mg/dL (0.15-1.2) 02/11/25 17:00 AST 16 U/L (0-32) 02/11/25 17:00 ALT 9 U/L (0-33) 02/11/25 17:00 Alkaline Phosphatase 118 U/L (35-105) H 02/11/25 17:00 Troponin T Baseline 19 ng/L (0-10) H 02/11/25 17:00 Troponin T 120 Minute 17.87 ng/L (0-10) H 02/11/25 19:05 Delta Troponin T -1.13 ABS# (0-10) L 02/11/25 19:05 NT-Pro-B Natriuret Pep 243 pg/mL (0-450) 02/11/25 17:00 Total Protein 7.3 g/dL (6.6-8.7) 02/11/25 17:00 Albumin 4.5 g/dL (3.5-5.2) 02/11/25 17:00 Globulin 2.8 g/dL (1.3-4.6) 02/11/25 17:00 Procalcitonin 0.03 ng/mL (0-0.5) 02/11/25 17:00 Urine Color Yellow (Yellow) 02/11/25 17:15 Urine Appearance Clear (CLEAR) 02/11/25 17:15 Urine pH 8.0 (5-7) A 02/11/25 17:15 Ur Specific [place] 1.008 (1.005-1.030) 02/11/25 17:15 Urine Protein Negative (Negative) 02/11/25 17:15 Urine Glucose (UA) Negative (Normal) 02/11/25 17:15 Urine Ketones Trace (Negative) 02/11/25 17:15 Urine Blood Negative (Negative) 02/11/25 17:15 Urine Nitrate Negative (Negative) 02/11/25 17:15 Urine Bilirubin Negative (Negative) 02/11/25 17:15 Urine Urobilinogen 1.0 mg/dL (Negative) 02/11/25 17:15 Ur Leukocyte Esterase Negative (Negative) 02/11/25 17:15 Urine RBC 0-2 /hpf (0-2) 02/11/25 17:15 Urine WBC 0-5 /hpf (0-5) 02/11/25 17:15 Ur Squamous Epith Cells 0-5 /hpf (0-5) 02/11/25 17:15 Amorphous Sediment Not Reportable 02/11/25 17:15 Urine Bacteria None seen /hpf (NONE) 02/11/25 17:15 Hyaline Casts 0.40 /lpf 02/11/25 17:15 Influenza A (PCR) Negative (Negative) 02/11/25 16:50 Influenza Type B (PCR) Negative (Negative) 02/11/25 16:50 RSV (PCR) Negative (Negative) 02/11/25 16:50 SARS-CoV-2 (PCR) Negative (Negative) 02/11/25 16:50 All radiology interpretation(s) finalized by discharge Discharge Plan Discharge Patient Disposition: Home Clinical Impression: COPD with acute exacerbation, Bronchitis Condition: Stable Prescriptions: New benzonatate 200 mg capsule 200 mg PO TID PRN (Reason: cough) Qty: 30 0RF doxycycline hyclate 100 mg capsule 100 mg PO BID 7 Days Qty: 14 0RF prednisone 20 mg tablet 60 mg PO DAILY 5 Days Qty: 15 0RF ondansetron 4 mg tablet,disintegrating 4 mg PO Q8H PRN (Reason: nausea and vomiting) Qty: 10 0RF No Action albuterol sulfate 90 mcg/actuation HFA aerosol inhaler 1 inh inhalation QID PRN (Reason: shortness of breath or wheezing) Qty: 8.5 3RF clonidine HCl 0.1 mg tablet 0.1 mg PO BID PRN (Reason: hypertensive urgency) Qty: 30 0RF Rx Instructions: Take one tablet PO as needed for BP >180 systolic or >110 diastolic. amlodipine 5 mg tablet 5 mg PO DAILY Qty: 90 0RF gabapentin 300 mg capsule See Rx Instructions .ROUTE .COMPLEX PRN Dose Instruction: Take 1 capsule by mouth twice daily Rx Instructions: Take 1 capsule by mouth twice daily PRN; lisinopril 20 mg tablet 20 mg PO DAILY Qty: 90 3RF pantoprazole 40 mg tablet,delayed release (DR/EC) 40 mg PO DAILY montelukast [Singulair] 10 mg tablet 10 mg PO DAILY Qty: 30 2RF levofloxacin 500 mg tablet 500 mg PO DAILY Qty: 7 0RF ondansetron 4 mg tablet,disintegrating 4 mg PO Q8H PRN (Reason: nausea and vomiting) Qty: 30 1RF Discharge Orders: Discharge ED (Routine); Ordered 02/11/25 Ordered By: Josie Coats Referrals: Jelani Neves DO [Primary Care Provider] - Discharge Diet: Usual diet Discharge Activity: Increase activity as tolerated Patient Instructions: Acute Bronchitis (ED), COPD (Chronic Obstructive Pulmonary Disease) (ED), Opioid Safety, Pain Management Activity Restrictions/Additional Instructions: Thank you for choosing [facility] for your healthcare needs today. Please realize this is an emergency room and that we are providing you with a medical screening exam and this may not be complete and all inclusive of all the testing and or work up that you may need to determine your ailment or severity of your illness. You have been screened and evaluated and felt safe for discharge. Health conditions do change or evolve sometimes and as such it is important that you follow up with your Primary Doctor to be re checked, 3-5 days is a general good time frame for follow up. You are always welcome to return to the ED for re assessment if your symptoms are worsening or you have new concerns Print Language: Bangladeshi Coding Level of Care Code ED Peanut Blancher for Kyler Wick
[2025-02-11 17:29] LABS: Bilirubin Urine Negative (Negative); Blood Urine Negative (Negative); Glucose Urine UA Negative (Normal); Ketones Urine Trace (Negative); Leukocyte Esterase Urine Negative (Negative); Nitrate Urine Negative (Negative); Protein Urine Negative (Negative); Specific Gravity, Urine 1.008 (1.005-1.030); Urine Appearance Clear (CLEAR); Urine Color Yellow (Yellow)
[2025-02-11 17:32] LABS: Bacteria Urine None Seen /hpf; RBC Urine 0-2 /hpf (0-2); Squamous Epithelial Cell Urine 0-5 /hpf (0-5); WBC Urine 0-5 /hpf (0-5)
[2025-02-11 17:34] LABS: Troponin(5th) Baseline 19 ng/L (0-10)
[2025-02-11 17:41] LABS: ABG PCO2 46.1 mmHg (35-45); ABG PH Result 7.42 (7.35-7.45); Arterial Blood Gas Hematocrit 48.1 % (37-47); Base Excess ABG 4.2 mmol/L (-2.0-2.0); Blood Gas Allen Test Pos; Blood Gas Operator Identificat MONRO; Blood Gas Sample Site Radial, right; Blood Gas Sample Type Arterial; Carboxyhemoglobin 0.9 %THgb (0.4-20.1); HCO3 ABG 29.7 mmol/L (22-26); HGB O2 Sat 91.8 % (95-100); Ionized Calcium Level - ABG 1.2 mmol/L (1.1-1.4); Methemoglobin 0.2 % (0.4-1.5); Oxygen Device NC; Oxygen Saturation ABG 92.8; PO2 ABG 61.4 mmHg (80.0-100.0); PO2 FiO2 Ratio Arterial Blood 219; Potassium Level - ABG 3.5 mmol/L (3.5-5.0); Total Hemoglobin 15.7 g/dL (12-16)
[2025-02-11 17:42] LABS: NT Pro B Type Natriuretic Pept 243 pg/mL (0-450); Procalcitonin 0.03 ng/mL (0-0.5)
[2025-02-11 17:53] LABS: Alanine Aminotransferase 9 U/L (0-33); Albumin Level 4.5 g/dL (3.5-5.2); Alkaline Phosphatase 118 U/L (35-105); Anion Gap 15.8 (5-19); Aspartate Amino Transferase 16 U/L (0-32); Blood Urea Nitrogen 11 mg/dL (8-23); Calcium 9.8 mg/dL (8.5-10.5); Carbon Dioxide 28 mmol/L (22-29); Chloride 99 mmol/L (98-107); Creatinine Clr Calc Pharmacy 49.4627; Globulin 2.8 g/dL (1.3-4.6); Glucose 92 mg/dL (65-115); Osmolality Calculated 287 mOsm/kg (285-295); Potassium 3.8 mmol/L (3.5-5.1); Sodium 139 mmol/L (136-145); Total Bilirubin 0.5 mg/dL (0.15-1.2); Total Protein 7.3 g/dL (6.6-8.7)
[2025-02-11 18:06] LABS: Influenza A NEGATIVE (Negative); Influenza B NEGATIVE (Negative); Respiratory Syncytial Virus Ce NEGATIVE (Negative); SARS-CoV-2 PCR NEGATIVE (Negative)
[2025-02-11 18:09] LABS: Lactic Sepsis W/Reflex 0.9 mmol/L (0.5-2.2)
[2025-02-11 19:10] VITALS: BP 186/120; PULSE 72; O2SAT 92
[2025-02-11 19:28] VITALS: BP 177/86; PULSE 78; O2SAT 93
[2025-02-11 19:28] LABS: Troponin 5 2HR 17.87 ng/L (0-10)
[2025-02-11 19:30] LABS: Troponin 5 2HR Delta -1.13 ABS# (0-10)
== END 2025-02-11 19:30 | disposition home or self-care (01) ==
PROVIDERS: Emergency Provider Emergency Medicine; PCP Family Medicine
DX: J44.1 Chronic obstructive pulmonary disease with (acute) exacerbation (principal); J44.0 Chronic obstructive pulmonary disease with (acute) lower respiratory infection; J20.9 Acute bronchitis, unspecified; Z11.52 Encounter for screening for COVID-19; Z87.891 Personal history of nicotine dependence; Z85.3 Personal history of malignant neoplasm of breast; I10 Essential (primary) hypertension; Z85.42 Personal history of malignant neoplasm of other parts of uterus
CPT/HCPCS: 36415; 36600; 71045; 80051; 80053; 81001; 82330; 82805; 83605; 83880; 84145; 84484; 85025; 87040; 87637; 93005; 99285

== ENCOUNTER 2025-02-23 11:48 | Outpatient (CLI) | payer MEDICARE, MEDICAID, SELFPAY ==
--- NOTE | 2025-02-23 12:00 | CTR_ITS ---
PROCEDURE INFORMATION: Exam: CT Chest Without Contrast; Diagnostic Exam date and time: 02/23/2025 12:09 PM Age: 84 years old Clinical indication: Angina pectoris; Prior surgery; Surgery date: 6+ months; Surgery type: Bilateral breast and lymph nodes; HX of breast cancer, . chest pains under left breast area into back, shortness of breath. Productive cough, lump in axillary region-bb. ; Additional info: R07.9 - chest pain, unspecified TECHNIQUE: Imaging protocol: Diagnostic computed tomography of the chest without contrast. Radiation optimization: All CT scans at this facility use at least one of these dose optimization techniques: automated exposure control; mA and/or kV adjustment per patient size (includes targeted exams where dose is matched to clinical indication); or iterative reconstruction. COMPARISON: [place] [id number] 02/19/2024 2:52 PM RADIATION DOSE METRICS: Total DLP (mGy-cm): 268.84 FINDINGS: Lungs: Emphysematous COPD. Scattered parenchymal fibrosis unchanged since last year. No suspicious pulmonary nodule. Pleural spaces: Unremarkable. No pneumothorax. No pleural effusion. Heart: Unremarkable. No cardiomegaly. No pericardial effusion. Coronary arteries: Coronary artery calcifications. Lymph nodes: Visible central lymph nodes are stable and not pathologically enlarged. Vasculature: Unremarkable. No aortic aneurysm. Diaphragm: Small hiatal hernia. Bones/joints: Unremarkable. No acute fracture. Soft tissues: Stable 13 mm nodule in the subcutaneous fat of the lateral left chest wall, benign in appearance. CT/CT chest wo con [id number] IMPRESSION: No acute findings.
== END 2025-02-23 11:49 | disposition home or self-care (01) ==
PROVIDERS: PCP Family Medicine; Visit Provider Family Medicine
DX: R07.9 Chest pain, unspecified (principal); R06.02 Shortness of breath; C50.812 Malignant neoplasm of overlapping sites of left female breast; R59.0 Localized enlarged lymph nodes; J44.89 Other specified chronic obstructive pulmonary disease; J43.9 Emphysema, unspecified; J84.10 Pulmonary fibrosis, unspecified; I25.10 Atherosclerotic heart disease of native coronary artery without angina pectoris; K44.9 Diaphragmatic hernia without obstruction or gangrene
CPT/HCPCS: 71250

== ENCOUNTER → 2025-05-10 14:08 | Outpatient (BNVA) | payer MEDICARE, MEDICAID, SELFPAY | PROVIDERS: PCP Family Medicine; Visit Provider Family Medicine | DX: M54.9 Dorsalgia, unspecified (principal) | CPT/HCPCS: 81000 ==

== ENCOUNTER 2025-05-11 13:41 | Outpatient (CLI) | payer MEDICARE, MEDICAID, SELFPAY ==
--- NOTE | 2025-05-11 14:00 | US_ITS ---
WS: [id number] Ultrasound of the right inguinal region, 05/11/2025 Clinical Data: K40.90 - Unilateral inguinal hernia, without obstruction ... Comparison: None. Findings: The right inguinal region demonstrated 2 lymph nodes, the lymph nodes were 1.3 and 1.4 cm respectively. Only normal subcutaneous tissue could be seen. No reducible inguinal hernia was seen. US/US soft tissue/extremity [id number] Impression: Negative right inguinal ultrasound.
== END 2025-05-11 13:42 | disposition home or self-care (01) ==
PROVIDERS: PCP Family Medicine; Visit Provider Family Medicine
DX: K40.90 Unilateral inguinal hernia, without obstruction or gangrene, not specified as recurrent (principal); R19.09 Other intra-abdominal and pelvic swelling, mass and lump; K41.30 Unilateral femoral hernia, with obstruction, without gangrene, not specified as recurrent; R59.0 Localized enlarged lymph nodes
CPT/HCPCS: 76882

== ENCOUNTER → 2025-06-15 10:40 | Outpatient (BNVA) | payer MEDICARE, MEDICAID, SELFPAY | PROVIDERS: PCP Family Medicine; Visit Provider Family Medicine | DX: R59.1 Generalized enlarged lymph nodes (principal) | CPT/HCPCS: 85025 ==

== ENCOUNTER → 2025-06-16 15:07 | Outpatient (BNVA) | payer MEDICARE, MEDICAID, SELFPAY | PROVIDERS: PCP Family Medicine; Visit Provider Family Medicine | DX: R59.1 Generalized enlarged lymph nodes (principal) | CPT/HCPCS: 80503 ==

== ENCOUNTER → 2025-11-17 11:29 | Outpatient (BNVA) | payer MEDICARE, MEDICAID, SELFPAY | PROVIDERS: PCP Family Medicine; Visit Provider Nurse Practitioner Family | DX: M54.9 Dorsalgia, unspecified (principal) | CPT/HCPCS: 81000 ==